=== PATIENT | female | born 1960 ===

== ENCOUNTER 2017-06-26 19:24 | Inpatient (IN) | payer MEDICARE, MEDICAID ==
[2017-06-26 19:24] VITALS: BMI 34.4
--- NOTE | 2017-06-26 19:58 | ED PDOC ---
HPI: Chest Pain Time Seen by Provider: 06/26/17 19:35 Chief Complaint (Nursing): Chest Pain Chief Complaint (Provider): Chest Pain History Per: Patient History/Exam Limitations: no limitations Onset/Duration Of Symptoms: Sudden Onset Current Symptoms Are (Timing): Still Present Quality: "Pain" Exacerbating Factors: Movement, Deep Breathing Additional Complaint(s): Anjelica Vazquez is a 56 y/o female, with a pertinent past medical history of Hypertension, Hypercholestrolemia, Pulmonary Embolism, and Deep Vein Thrombosis , presenting to the ER on 06/26/2017 with complaints of chest pain. Patient reports pain, which is associated with mild dyspnea, was initially localized in her left shoulder but has radiated to her jaw and chest since onset at 16:00 when the patient was relaxing at home. She denies syncope, orthopnea, or leg swelling. Of note, patient states she has discontinued her routine usage of Xarelto due to her rectal bleeding. Patient further states she has an upcoming appointment on 07/03/2017 with her GI. PMD- [facility]- doesnt remember name Past Medical History Reviewed: Historical Data, Nursing Documentation, Vital Signs Vital Signs: Last Vital Signs Temp 98.3 F 06/27/17 12:00 Pulse 60 06/27/17 12:00 Resp 18 06/27/17 12:00 BP 149/88 06/27/17 12:00 Pulse Ox 96 06/27/17 12:00 - Medical History PMH: Anemia, Asthma, Depression, Deep Vein Thrombosis (left leg), HTN, Hypercholesterolemia, Migraine Denies: Diabetes, HIV, Chronic Kidney Disease - Surgical History Surgical History: Cholecystectomy - Family History Family History: States: Unknown Family Hx, [place], Diabetes, Hypertension - Social History Current smoker - smoking cessation education provided: No Alcohol: None Drugs: Denies - Home Medications Home Medications: Ambulatory Orders Medication Instructions Recorded Escitalopram [Lexapro] 20 mg PO DAILY 04/15/16 Esomeprazole Magnesium [Nexium] 40 mg PO ACB 04/15/16 Metoprolol Succinate XL [Toprol XL] 25 mg PO DAILY 04/15/16 Fenofibrate [Triglide] 160 mg PO DAILY 06/26/17 Hydroxychloroquine Sulfate 200 mg PO DAILY 06/26/17 [Plaquenil] Rivaroxaban [Xarelto] 15 mg PO DAILY 06/26/17 - Allergies Allergies/Adverse Reactions: Allergies Allergy/AdvReac Type Severity Reaction Status Date / Time ibuprofen Allergy ITCHING Verified 06/26/17 19:44 Review of Systems ROS Statement: Except As Marked, All Systems Reviewed And Found Negative Cardiovascular: Positive for: Chest Pain. Negative for: Light Headedness Musculoskeletal: Positive for: Neck Pain, Shoulder Pain Physical Exam - Reviewed Nursing Documentation Reviewed: Yes Vital Signs Reviewed: Yes - Physical Exam Appears: Positive for: Non-toxic, No Acute Distress (patient appears to be anxious ) Head Exam: Positive for: ATRAUMATIC, NORMOCEPHALIC Skin: Positive for: Normal Color. Negative for: Rash Eye Exam: Positive for: Normal appearance, EOMI, PERRL ENT: Positive for: Normal ENT Inspection Neck: Positive for: Normal, Painless ROM, Supple Cardiovascular/Chest: Positive for: Regular Rate, Rhythm, Other (patient has reproducible pain to her chest wall ). Negative for: Murmur Respiratory: Positive for: Normal Breath Sounds. Negative for: Respiratory Distress Gastrointestinal/Abdominal: Positive for: Normal Exam, Soft. Negative for: Tenderness Extremity: Positive for: Normal ROM (moderate pain with ROM of left shoulder ). Negative for: Deformity, Swelling Neurologic/Psych: Positive for: Alert, Oriented. Negative for: Motor/Sensory Deficits - Laboratory Results Result Diagrams: 06/27/17 05:35 06/27/17 05:35 - ECG O2 Sat by Pulse Oximetry: 97 Medical Decision Making Medical Decision Makin:35 Initial Impression- 56 y/o female with chest pain Patient's presentation of symptoms puts her at a higher risk for venous thromboembloism, given recent discontinuation of anticoagulation medications. Patient's symptoms are typical of angina as well. She states last stress test was couple years ago. 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 Will order ACS and PE workup as well as trial of NTG for her pain. 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 Dictated and Authenticated by: Nancy Gallegos pt had slight improvement w nitro. Pain atypical but HEART score = 5 (slightly suspicious clinical presentation, nonspecific EKG changes, obese/HTN/high cholesterol). In addition, she is recently off anticoagulation therapy. Documented by Claudia Azar, acting as a scribe for Tr Kothari III, DO All medical record entries made by the Scribe were at my direction and personally dictated by me. I have reviewed the chart and agree that the record accurately reflects my personal performance of the history, physical exam, medical decision making, and the department course for this patient. I have also personally directed, reviewed, and agree with the discharge instructions and disposition. Disposition - Clinical Impression Clinical Impression: Chest pain - Patient ED Disposition Is Patient to be Admitted: Yes Counseled Patient/Family Regarding: Studies Performed, Diagnosis, Need For Followup - Disposition Disposition Time: 22:00 Condition: STABLE - Pt Status Changed To: Hospital Disposition Of: Observation - POA Present On Arrival: None
[2017-06-26 20:07] LABS: BASO % 0.4 % (0.0-2.0); EOS # 0.1 K/uL (0.0-0.7); EOS % 1.3 % (0.0-4.0); HEMATOCRIT 39.3 % (34.0-47.0); LYMPH # 3.5 K/uL (1.0-4.3); LYMPH % 45.7 % (20.0-40.0); MEAN CELL VOLUME 88.8 fl (81.0-99.0); MEAN CORPUSCULAR HEMOGLOBIN 29.1 pg (27.0-31.0); MEAN CORPUSCULAR HGB CONC 32.7 g/dL (33.0-37.0); MEAN PLATELET VOLUME 9.8 fl (7.2-11.7); MONO # 0.7 K/uL (0.0-0.8); MONO % 9.4 % (0.0-10.0); NEUT # 3.3 K/uL (1.8-7.0); NEUT % 43.2 % (50.0-75.0); RED CELL DISTRIBUTION WIDTH 14.5 % (11.5-14.5); WHITE BLOOD COUNT 7.6 K/uL (4.8-10.8)
[2017-06-26 20:12] LABS: ALB/GLOB RATIO 1.3 (1.0-2.1); ALKALINE PHOSPHATASE 99 U/L (38-126); ALT/SGPT 59 U/L (9-52); AST/SGOT 45 U/L (14-36); BILIRUBIN,TOTAL 0.6 mg/dl (0.2-1.3); BLOOD UREA NITROGEN 12 mg/dl (7-17); CALCIUM 9.1 mg/dL (8.4-10.2); CARBON DIOXIDE 25 mmol/L (22-30); CHLORIDE 109 mmol/L (98-107); GFR AFRICAN-AMERICAN 56; GLUCOSE,RANDOM 121 mg/dL (65-105); POTASSIUM 3.7 MMOL/L (3.6-5.0); SODIUM 144 mmol/l (132-148); TOTAL PROTEIN 7.4 G/DL (6.3-8.2)
[2017-06-26] MEDS ORDERED: Sodium Chloride 0.9% 50 ML IV ONE (21:23)
[2017-06-26] MEDS ORDERED: Iodixanol 320 MG/ML 100 ML BOTTLE IV ONE (21:23)
--- NOTE | 2017-06-26 23:09 | CT ---
EXAM: CT Angiography Chest With Intravenous Contrast CLINICAL HISTORY: 56 years old, female; Pain; Chest pain; Left-sided chest pain; Additional info: HX pe, off ac, chest pain. TECHNIQUE: Axial computed tomographic angiography images of the chest with intravenous contrast using pulmonary embolism protocol. This CT exam was performed using one or more of the following dose reduction techniques: automated exposure control, adjustment of the mA and/or kV according to patient size, and/or use of iterative reconstruction technique. MIP reconstructed images were created and reviewed. Coronal and sagittal reformatted images were created and reviewed. CONTRAST: 90 mL of [id number] administered intravenously. EXAM DATE/TIME: 06/26/2017 8:54 PM COMPARISON: CT - ANGIO CHEST PE PROTOCOL 04/14/2016 9:19:37 PM FINDINGS: Heart, aorta and Pulmonary arteries: Heart size is normal.There is trace fluid in pericardial recesses.There are coronary artery calcifications.There is no aneurysm or dissection.There are vascular calcifications. Evaluation of pulmonary arteries is slightly limited by bolus timing. There are no pulmonary emboli. Lungs and pleural spaces: Trachea and main bronchi are patent.There is no pneumothorax. There is no focal consolidation. There is dependent atelectasis. There is a left lower lobe granuloma. There are no effusions. Mediastinum: Esophagus is unremarkable. No pathologically enlarged noncalcified mediastinal or hilar nodes. There are small calcified hilar nodes. Thyroid: Thyroid is only partially imaged. Bones/joints: There are degenerative changes in the osseus structures. Soft tissues: unremarkable Gallbladder and bile ducts: Pelvis in the spleen. Gallbladder is absent. Upper abdomen: There are no acute abnormalities in the visualized portion of the abdomen. IMPRESSION: Slightly limited by bolus timing, no aneurysm, dissection embolus; prior granulomatous disease; no focal pneumonia
[2017-06-27 07:11] LABS: BASO % 0.3 % (0.0-2.0); EOS # 0.1 K/uL (0.0-0.7); EOS % 1.4 % (0.0-4.0); HEMATOCRIT 35.7 % (34.0-47.0); LYMPH # 3.5 K/uL (1.0-4.3); LYMPH % 53.9 % (20.0-40.0); MEAN CELL VOLUME 88.3 fl (81.0-99.0); MEAN CORPUSCULAR HEMOGLOBIN 29.5 pg (27.0-31.0); MEAN CORPUSCULAR HGB CONC 33.4 g/dL (33.0-37.0); MEAN PLATELET VOLUME 10.4 fl (7.2-11.7); MONO # 0.5 K/uL (0.0-0.8); MONO % 8.3 % (0.0-10.0); NEUT # 2.4 K/uL (1.8-7.0); NEUT % 36.1 % (50.0-75.0); NRBC % 0.1 % (0.0-0.0); RED CELL DISTRIBUTION WIDTH 14.4 % (11.5-14.5); WHITE BLOOD COUNT 6.6 K/uL (4.8-10.8)
--- NOTE | 2017-06-27 07:13 | RAD ---
HISTORY: chest pain COMPARISON: Chest x-ray performed 04/14/16 TECHNIQUE: Chest PA and lateral FINDINGS: Examination limited by habitus. LUNGS: No focal consolidation. 5 mm left lower lobe calcified granuloma. Please note that chest x-ray has limited sensitivity for the detection of pulmonary masses. PLEURA: No significant pleural effusion identified. No definite pneumothorax . CARDIOVASCULAR: Heart size appears within normal limits. Ectatic aorta. Atherosclerotic calcifications. OSSEOUS STRUCTURES: Degenerative degenerative changes of the spine and shoulders. VISUALIZED UPPER ABDOMEN: Right upper quadrant surgical clips. OTHER FINDINGS: None. IMPRESSION: No active disease. Findings as above.
[2017-06-27 07:21] LABS: ALB/GLOB RATIO 1.2 (1.0-2.1); ALKALINE PHOSPHATASE 91 U/L (38-126); ALT/SGPT 53 U/L (9-52); AST/SGOT 40 U/L (14-36); BILIRUBIN,TOTAL 0.7 mg/dl (0.2-1.3); BLOOD UREA NITROGEN 14 mg/dl (7-17); CALCIUM 8.6 mg/dL (8.4-10.2); CARBON DIOXIDE 27 mmol/L (22-30); CHLORIDE 106 mmol/L (98-107); GFR AFRICAN-AMERICAN > 60; GLUCOSE,RANDOM 96 mg/dL (65-105); POTASSIUM 3.6 MMOL/L (3.6-5.0); SODIUM 142 mmol/l (132-148); TOTAL PROTEIN 6.7 G/DL (6.3-8.2)
--- NOTE | 2017-06-27 07:25 | CP.PCM.HP ---
History of Present Illness - History of Present Illness History of Present Illness: A 56 year old female came for chest pain. It started yesterday (06/26/17) around 4 PM when she was relaxing at home. This was her first time. The pain is substernal and radiating to left shoulder. The pain was continuous and 9/10. She had mild shortness of breath, and lightheadedness, but there was no nausea, vomiting or headache. She has a history of hypertension, PE and DVT, elevated cholesterol and depression. She had been taking Xarelto for PE till recently and stopped when she had rectal bleeding. She was supposed to have a colonoscopy next week even though her previous one about two years ago was normal. Present on Admission - Present on Admission Any Indicators Present on Admission: No History of DVT/PE: No History of Uncontrolled Diabetes: No Urinary Catheter: No Decubitus Ulcer Present: No Review of Systems - Constitutional Constitutional: absent: Fever, Headache - Cardiovascular Cardiovascular: Chest Pain, Chest Pain at Rest. absent: Diaphoresis, Paroxysmal Nocturnal Dyspnea - Respiratory Respiratory: absent: Cough - Gastrointestinal Gastrointestinal: absent: Nausea, Vomiting Past Patient History - Infectious Disease Hx of Infectious Diseases: None - Tetanus Immunizations Tetanus Immunization: Unknown - Past Medical History & Family History Past Medical History?: Yes - Past Social History Smoking Status: Never Smoked - CARDIAC Hx Cardiac Disorders: Yes Hx Hypercholesterolemia: Yes Hx Hypertension: Yes - PULMONARY Hx Respiratory Disorders: Yes Hx Asthma: Yes - NEUROLOGICAL Hx Neurological Disorder: No - HEENT Hx HEENT Problems: No - RENAL Hx Chronic Kidney Disease: No - ENDOCRINE/METABOLIC Hx Endocrine Disorders: No - HEMATOLOGICAL/ONCOLOGICAL Hx Blood Disorders: Yes Hx Anemia: Yes Other/Comment: LEFT LEG DVT WITH IVC FILTER - INTEGUMENTARY Hx Dermatological Problems: No - MUSCULOSKELETAL/RHEUMATOLOGICAL Hx Musculoskeletal Disorders: Yes Hx Arthritis: Yes Hx Falls: No - GASTROINTESTINAL Hx Gastrointestinal Disorders: No - GENITOURINARY/GYNECOLOGICAL Hx Genitourinary Disorders: No - PSYCHIATRIC Hx Psychophysiologic Disorder: Yes Hx Depression: Yes Hx Substance Use: No - SURGICAL HISTORY Hx Surgeries: Yes Hx Cholecystectomy: Yes Other/Comment: IVC FILTER PLACEMENT - ANESTHESIA Hx Anesthesia: Yes Hx Anesthesia Reactions: No Hx Malignant Hyperthermia: No Meds Allergies/Adverse Reactions: Allergies Allergy/AdvReac Type Severity Reaction Status Date / Time ibuprofen Allergy ITCHING Verified 06/26/17 19:44 Physical Exam - Constitutional Appears: No Acute Distress - Head Exam Head Exam: ATRAUMATIC - Neck Exam Neck exam: Negative for: Meningismus - Respiratory Exam Respiratory Exam: Clear to Auscultation Bilateral, NORMAL BREATHING PATTERN - Cardiovascular Exam Cardiovascular Exam: REGULAR RHYTHM, +S1, +S2. absent: Diastolic murmur, Systolic Murmur - GI/Abdominal Exam GI & Abdominal Exam: Normal Bowel Sounds, Soft. absent: Tenderness - Extremities Exam Extremities exam: Positive for: normal inspection. Negative for: pedal edema Results - Vital Signs Recent Vital Signs: Last Vital Signs Temp 97.9 F 06/27/17 05:13 Pulse 67 06/27/17 05:13 Resp 20 06/27/17 05:13 BP 128/84 06/27/17 05:13 Pulse Ox 94 L 06/27/17 05:13 - Labs Result Diagrams: 06/26/17 19:52 06/26/17 16:22 Assessment & Plan - Assessment and Plan (Free Text) Assessment: A 56 year old female with history of HTN, PE, DVT and depression came for chest pain for one day. R/O ACS Plan: troponin, EKG follow up. cardiology consult morphine iv for pain control - Date & Time Date: 06/27/17 Time: 07:29 Decision To Admit - Pt Status Changed To: Hospital Disposition Of: Inpatient - Admit Certification Admit to Inpatient:: After my assessment, the patient will require hospitalization for at least two midnights. This is because of the severity of symptoms shown, intensity of services needed, and/or the medical risk in this patient being treated as an outpatient. - . Bed Request Type: Telemetry Admitting Physician: Ronnie Magallanes
[2017-06-27] MEDS: Pantoprazole 40 mg EC Tab PO SCH (09:49)
[2017-06-27] MEDS: Metoprolol Succinate 25 mg XL Tab PO SCH ×2 (09:49→17:21)
--- NOTE | 2017-06-27 10:13 | CARD ---
APPROVED REPORT EKG Measurement Heart [id number] DC [id number] <Conclusion> Normal sinus rhythm Minimal voltage criteria for LVH, may be normal variant Borderline ECG
--- NOTE | 2017-06-27 18:59 | CARD ---
APPROVED REPORT EXAM: Two-dimensional and M-mode echocardiogram with Doppler, color Doppler with contrast. Other Information Quality : GoodRhythm : NSR INDICATION ACS Echo Enhancing Agent Indication: Endocardial border delineation Agent/Amount Used: Definity 2D DIMENSIONS IVSd0.97 (0.7-1.1cm)LVDd3.89 (3.9-5.9cm) LVOT Diameter1.72 (1.8-2.4cm)PWd0.92 (0.7-1.1cm) IVSs1.64 (0.8-1.2cm)LVDs2.05 (2.5-4.0cm) FS (%) 47.3 %PWs1.55 (0.8-1.2cm) M-Mode DIMENSIONS Left Atrium (MM)4.53 (2.5-4.0cm)IVSd1.09 (0.7-1.1cm) Aortic Root2.91 (2.2-3.7cm)LVDd5.50 (4.0-5.6cm) Aortic Cusp Exc.2.09 (1.5-2.0cm)PWd0.97 (0.7-1.1cm) IVSs1.56 cmFS (%) 46 % LVDs2.97 (2.0-3.8cm)PWs1.44 cm Mitral Valve MV E Ealfvldq43.5cm/sMV DECEL EVIK885cmAM A Cxryvjih17.4cm/s MV BCS27xgN/A ratio0.8MVA (PHT)2.29cm2 TDI Lateral E' Peak V6.44cm/sMedial E' Peak V5.70cm/sE/Lateral E'6.9 E/Medial E'7.8 Pulmonary Valve PV Peak Unesvwqu35.9cm/s LEFT VENTRICLE The left ventricle is normal size. There is normal left ventricular wall thickness. The left ventricular function is normal. The left ventricular ejection fraction is - 75%. There is normal LV segmental wall motion. Transmitral Doppler flow pattern is Grade I-abnormal relaxation pattern. No left ventricle thrombus noted on this study. There is no ventricular septal defect visualized. There is no left ventricular aneurysm. There is no mass noted in the left ventricle. RIGHT VENTRICLE The right ventricle is normal size. There is normal right ventricular wall thickness. The right ventricular systolic function is normal. ATRIA The left atrium is mildly dilated. There is no thrombus suspected in the left atrium. The right atrium size is normal. The interatrial septum is intact with no evidence for an atrial septal defect. AORTIC VALVE The aortic valve is normal in structure and function. No aortic regurgitation is present. There is no aortic valvular stenosis. MITRAL VALVE The mitral valve is normal in structure and function. There is no evidence of mitral valve prolapse. There is no mitral valve stenosis. Mitral regurgitation is trace. TRICUSPID VALVE The tricuspid valve is normal in structure and function. There is trace tricuspid regurgitation. There is no tricuspid valve prolapse or vegetation. There is no tricuspid valve stenosis. PULMONIC VALVE The pulmonic valve is not well visualized. There is no pulmonic valvular regurgitation. GREAT VESSELS The aortic root is normal in size. The IVC is normal in size and collapses >50% with inspiration. PERICARDIAL EFFUSION The pericardium appears normal. There is no pleural effusion. <Conclusion> The study was of good quality. An echo enhancing agent was used. The left ventricle is normal in size and wall thickness. The left ventricular function is normal. The left ventricular ejection fraction is - 75%. The left atrium is mildly dilated. The mitral, aortic and tricuspid valves are normal. There is trace mitral regurgitation and trace tricuspid regurgitation.
--- NOTE | 2017-06-27 22:08 | CP.PCM.CON ---
History of Present Illness - History of Present Illness History of Present Illness: pt experienced 1 episode of cp yesterday. This occured while sitting and watching tv. Described as left sided chest heaviness radiating to left arm with hand numbness. 8/10 in intensity, lasting 5 min and resolved on own. no prior episodes. positive sob, palp and lightheadedness. no diaphoresis, n/v. no prior episodes. 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 she is unsure if she carries the diagnosis of hypercoag state. Additionally she has an ivcf. denies prior cardiac hx, denies tobacco. She does have a strong fam hx of cad (both mom and dad) and is 16 years post menopausal. additionally she has dyslipidemia and htn. Review of Systems - Constitutional Constitutional: absent: As Per HPI, Anorexia, Chills, Daytime Sleepiness, Excessive Sweating, Fatigue, Fever, Frequent Falls, Headache, Increased Appetite , Lethargy, Malaise, Night Sweats, Snoring, Sleep Apnea, Weight Gain, Weight Loss, Weakness, Other - EENT Eyes: absent: As Per HPI, Blind Spots, Blurred Vision, Change in Vision, Decreased Night Vision, Diplopia, Discharge, Dry Eye, Exophthalmos, Floaters, Irritation, Itchy Eyes, Loss of Peripheral Vision, Pain, Photophobia, Requires Corrective Lenses, Sees Flashes, Spots in Vision, Tunnel Vision, Other Visual Disturbances, Loss of Vision, Other Ears: absent: As Per HPI, Decreased Hearing, Ear Discharge, Ear Pain, Tinnitus, Abnormal Hearing, Disequilibrium, Dizziness, Other Nose/Mouth/Throat: absent: As Per HPI, Epistaxis, Nasal Congestion, Nasal Discharge, Nasal Obstruction, Nasal Trauma, Nose Pain, Post Nasal Drip, Sinus Pain, Sinus Pressure, Bleeding Gums, Change in Voice, Dental Pain, Dry Mouth, Dysphagia, Halitosis, Hoarsness, Lip Swelling, Mouth Lesions, Mouth Pain, Odynophagia, Sore Throat, Throat Swelling, Tongue Swelling, Facial Pain, Neck Pain, Neck Mass, Other - Breasts Breasts: absent: As Per HPI, Change in Shape, Mass, Pain, Nipple Discharge, Nipple Inversion, Skin Changes, Swelling, Other - Cardiovascular Cardiovascular: As Per HPI, Chest Pain, Chest Pain at Rest, Dyspnea, Pain Radiating to Arm/Neck/Jaw, Lightheadedness. absent: Acrocyanosis, Chest Pain with Activity, Claudication, Diaphoresis, Dyspnea on Exertion, Edema, Irregular Heart Rhythm, Leg Edema, Leg Ulcers, Orthopnea, Palpitations, Paroxysmal Nocturnal Dyspnea, Pedal Edema, Radiating Pain, Rapid Heart Rate, Slow Heart Rate, Syncope, Other - Respiratory Respiratory: As Per HPI, Dyspnea. absent: Cough, Hemoptysis, Dyspnea on Exertion, Wheezing, Snoring, Stridor, Pain on Inspiration, Chest Congestion, Excessive Mucous Production, Change in Mucous Color, Pain with Coughing, Other - Gastrointestinal Gastrointestinal: absent: As Per HPI, Abdominal Pain, Belching, Bloating, Change in Bowel Habits, Change in Stool Character, Coffee Ground Emesis, Constipation, Cramping, Diarrhea, Dyspepsia, Dysphagia, Early Satiety, Excessive Flatus, Fecal Incontinence, Heartburn, Hematemesis, Hematochezia, Loose Stools, Melena, Nausea, Odynophagia, Temesmus, Vomiting, Other - Genitourinary Genitourinary: absent: As Per HPI, Change in Urinary Stream, Difficulty Urinating, Dysuria, Flank Pain, Hematuria, Pyuria, Nocturia, Urinary Incontinence, Urinary Frequency, Urinary Hesitance, Urinary Urgency, Voiding Freq/Small Amts, Freq UTI, Hx Renal/Bladder Calculi, Hx /Renal Surgery, Bladder Distension, Other - Reproductive: Female Reproductive:Female: Post Menopausal. absent: As Per HPI, Amenorrhea, Amenorrhea/ Control, Currently Menstual, Cycle <21 Days, Cycle >35 Days, Cycle Variable, Menses 1-7 Days, Menses >/= 8 Days, Menses Variable, Cycle > 4 Weeks Between, No Menses for 6 Months, Heavy Menses, Light Menses, Normal Menses , Spotting Between Cycles, S/P Hysterectomy, Menopausal, Premenarche, Abnormal Vaginal Bleeding, Dysmenorrhea, Dyspareunia, Genital Lesions, Genital Pruritis, Pelvic Pain, Prolapse Symptoms, Sexual Dysfunction, Vaginal Discharge, Vaginal Dryness, Vaginal Odor, Vaginal Pruritis, Other - Menstruation Menstruation: absent: As Per HPI, Amenorrhea, Amenorrhea/ Control, Currently Menstual, Cycle <21 Days, Cycle >35 Days, Cycle Variable, Menses 1-7 Days, Menses >/= 8 Days, Menses Variable, Cycle > 4 Weeks Between, No Menses for 6 Months, Heavy Menses, Light Menses, Normal Menses, Spotting Between Cycles , S/P Hysterectomy, Menopausal, Post Menopausal, Premenarche, Abnormal Vaginal Bleeding, Dysmenorrhea, Other - Musculoskeletal Musculoskeletal: absent: As Per HPI, Abnormal Gait, Arthralgias, Atrophy, Back Pain, Deformity, Joint Swelling, Limited Range of Motion, Loss of Height, Muscle Cramps, Muscle Weakness, Myalgias, Neck Pain, Numbness, Radiating Pain into Limb, Stiffness, Tingling, Other - Integumentary Integumentary: absent: As Per HPI, Acne, Alopecia, Bleeding Lesions, Change in Hair, Change in Nails, Change in Pigmentation, Changing Lesions, Dry Skin, Erythema, Furuncle, Hirsutism, Lesions, New Lesions, Non-Healing Lesions, Photosensitivity, Pruritus, Rash, Skin Pain, Skin Ulcer, Sores, Striae, Swelling , Unusual Bruising, Wounds, Jaundice, Other - Neurological Neurological: absent: As Per HPI, Abnormal Gait, Abnormal Hearing, Abnormal Movements, Abnormal Speech, Behavioral Changes, Burning Sensations, Confusion, Convulsions, Disequilibrium, Dizziness, Numbness, Focal Weakness, Frequent Falls , Headaches, Lack of Coordination, Loss of Vision, Memory Loss, Paresthesias, Radicular Pain, Restless Legs, Sensory Deficit, Syncope, Tingling, Tremor, Vertigo, Weakness, Other Visual Disturbances, Other - Psychiatric Psychiatric: absent: As Per HPI, Abnormal Sleep Pattern, Anhedonia, Anxiety, Auditory Hallucinations, Behavioral Changes, Change in Appetite, Change in Libido, Confusion, Depression, Difficulty Concentrating, Hallucinations, Homicidal Ideation, Hopelessness, Irritability, Memory Loss, Mood Swings, Panic Attacks, Paranoia, Suicidal Ideation, Visual Hallucinations, Tactile Hallucinations, Other - Endocrine Endocrine: absent: As Per HPI, Change in Body Appearance, Change in Libido, Cold Intolorance, Deepening of Voice, Excessive Sweating, Fatigue, Flushing, Heat Intolorance, Increase in Ring/Shoe/Hat Size, Palpitations, Polydipsia, Polyphagia, Polyuria, Other - Hematologic/Lymphatic Hematologic: absent: As Per HPI, Easy Bleeding, Easy Bruising, Lymphadenopathy, Other Past Patient History - Infectious Disease Hx of Infectious Diseases: None - Tetanus Immunizations Tetanus Immunization: Unknown - Past Medical History & Family History Past Medical History?: Yes Pertinent Family History: both parents had premature cad - Past Social History Smoking Status: Never Smoked Chewing Tobacco Use: No Cigar Use: No Alcohol: None Drugs: Denies - CARDIAC Hx Cardiac Disorders: Yes Hx Hypercholesterolemia: Yes Hx Hypertension: Yes - PULMONARY Hx Respiratory Disorders: Yes Hx Asthma: Yes Other/Comment: dvt and pe - NEUROLOGICAL Hx Neurological Disorder: Yes Hx Migraine: Yes - HEENT Hx HEENT Problems: No - RENAL Hx Chronic Kidney Disease: No - ENDOCRINE/METABOLIC Hx Endocrine Disorders: No - HEMATOLOGICAL/ONCOLOGICAL Hx Blood Disorders: Yes Hx Anemia: Yes Hx Human Immunodeficiency Virus (HIV): No Other/Comment: unknown if hypercoag - INTEGUMENTARY Hx Dermatological Problems: No - MUSCULOSKELETAL/RHEUMATOLOGICAL Hx Musculoskeletal Disorders: Yes Hx Arthritis: Yes Hx Falls: No - GASTROINTESTINAL Hx Gastrointestinal Disorders: No - GENITOURINARY/GYNECOLOGICAL Hx Genitourinary Disorders: No - PSYCHIATRIC Hx Depression: Yes - SURGICAL HISTORY Hx Cholecystectomy: Yes - ANESTHESIA Hx Anesthesia: Yes Hx Anesthesia Reactions: No Hx Malignant Hyperthermia: No Meds Allergies/Adverse Reactions: Allergies Allergy/AdvReac Type Severity Reaction Status Date / Time ibuprofen Allergy ITCHING Verified 06/26/17 19:44 - Medications Medications: Current Medications Acetaminophen (Tylenol 325mg Tab) 650 mg PO Q6 PRN PRN Reason: Pain, moderate (4-7) Aspirin (Aspirin Chewable) 81 mg PO DAILY [facility] Last Admin: 06/27/17 09:48 Dose: 81 mg Enoxaparin Sodium (Lovenox) 80 mg SC Q12 [facility] PRN Reason: Protocol Escitalopram Oxalate (Lexapro) 20 mg PO DAILY [facility] Last Admin: 06/27/17 09:48 Dose: 20 mg Hydroxychloroquine Sulfate (Plaquenil) 200 mg PO DAILY [facility] Last Admin: 06/27/17 09:49 Dose: 200 mg Metoprolol Succinate (Toprol Xl) 25 mg PO BID [facility] Last Admin: 06/27/17 17:21 Dose: 25 mg Morphine Sulfate (Morphine) 2 mg IVP Q6 PRN PRN Reason: Pain, severe (8-10) Last Admin: 06/27/17 20:47 Dose: 2 mg Pantoprazole Sodium (Protonix Ec Tab) 40 mg PO ACB [facility] Last Admin: 06/27/17 09:49 Dose: 40 mg Physical Exam - Constitutional Appears: Well - Head Exam Head Exam: ATRAUMATIC, NORMAL INSPECTION, NORMOCEPHALIC - Eye Exam Eye Exam: EOMI, Normal appearance, PERRL. absent: Conjunctival injection, Nystagmus, Periorbital swelling, Periorbital tenderness, Scleral icterus Pupil Exam: NORMAL ACCOMODATION, PERRL. absent: Fixed, Irregular, Miosis, Mydriatic, Unequal - ENT Exam ENT Exam: Mucous Membranes Moist, Normal Exam. absent: Mucous Membranes Dry, Normal External Ear Exam, Normal Oropharynx, TM's Normal Bilaterally - Neck Exam Neck exam: Positive for: Normal Inspection - Respiratory Exam Respiratory Exam: Rales, NORMAL BREATHING PATTERN. absent: Accessory Muscle Use , Chest Wall Tenderness, Decreased Breath Sounds, Clear to Auscultation Bilateral, Prolonged Expiratory Phase, Rhonchi, Wheezes, Respiratory Distress, Stridor Additional comments: mild bibasilar - Cardiovascular Exam Cardiovascular Exam: REGULAR RHYTHM, +S1, +S2, Systolic Murmur. absent: Bradycardia, Tachycardia, Clicks, Diastolic murmur, Gallop, Irregular Rhythm, JVD, RRR, Rubs, +S4 - GI/Abdominal Exam GI & Abdominal Exam: Normal Bowel Sounds, Soft - Rectal Exam Rectal Exam: Deferred - Extremities Exam Extremities exam: Positive for: normal inspection. Negative for: calf tenderness, full ROM, joint swelling, normal capillary refill, pedal edema, tenderness, pedal pulses present - Back Exam Back exam: NORMAL INSPECTION. absent: CVA tenderness (L), CVA tenderness (R), FULL ROM, muscle spasm, paraspinal tenderness, rash noted, tenderness, vertebral tenderness - Psychiatric Exam Psychiatric exam: Normal Affect, Normal Mood - Skin Skin Exam: Dry, Intact, Normal Color, Warm Results - Vital Signs Recent Vital Signs: Last Vital Signs Temp 98.5 F 06/27/17 20:08 Pulse 66 06/27/17 20:08 Resp 16 06/27/17 20:08 BP 143/85 06/27/17 20:08 Pulse Ox 97 06/27/17 20:08 - Labs Result Diagrams: 06/27/17 05:35 06/27/17 05:35 Labs: Laboratory Results - last 24 hr 06/27/17 20:06 Troponin I < 0.0120 - EKG Data EKG Interpreted by: Myself EKG shows normal: Sinus rhythm Rate: Normal - EKG Data EKG comments: no ischemic changes. borderline lvh Assessment & Plan (1) Chest pain Status: Acute Priority: High (2) HTN (hypertension) Status: Chronic (3) HLD (hyperlipidemia) Status: Chronic (4) DVT (deep venous thrombosis) Status: Chronic (5) Pulmonary embolism Status: Chronic - Assessment and Plan (Free Text) Plan: pt has typical angina and multiple risk factors. 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 changed ACEI to ramipril 90 min total care time
[2017-06-27] MEDS: Enoxaparin 100 mg Syringe SC SCH (22:13)
[2017-06-28] MEDS: Enoxaparin 100 mg Syringe SC SCH ×2 (08:02→20:14)
[2017-06-28] MEDS: Pantoprazole 40 mg EC Tab PO SCH (08:03)
[2017-06-28] MEDS: Metoprolol Succinate 25 mg XL Tab PO SCH ×2 (08:03→16:25)
--- NOTE | 2017-06-28 08:13 | CP.PCM.PN ---
Subjective - Date & Time of Evaluation Date of Evaluation: 06/28/17 Time of Evaluation: 08:11 - Subjective Subjective: less chest pain Objective - Vital Signs/Intake and Output Vital Signs (last 24 hours): Temp Pulse Resp BP Pulse Ox 98.3 F 60 18 158/86 H 95 06/28/17 08:00 06/28/17 08:03 06/28/17 08:00 06/28/17 08:03 06/28/17 08:00 - Medications Medications: Current Medications Acetaminophen (Tylenol 325mg Tab) 650 mg PO Q6 PRN PRN Reason: Pain, moderate (4-7) Aspirin (Aspirin Chewable) 81 mg PO DAILY [facility] Last Admin: 06/28/17 08:02 Dose: 81 mg Enoxaparin Sodium (Lovenox) 90 mg SC Q12 [facility] PRN Reason: Protocol Last Admin: 06/28/17 08:02 Dose: 90 mg Escitalopram Oxalate (Lexapro) 20 mg PO DAILY [facility] Last Admin: 06/28/17 08:02 Dose: 20 mg Hydroxychloroquine Sulfate (Plaquenil) 200 mg PO DAILY [facility] Last Admin: 06/28/17 08:03 Dose: 200 mg Metoprolol Succinate (Toprol Xl) 25 mg PO BID [facility] Last Admin: 06/28/17 08:03 Dose: 25 mg Morphine Sulfate (Morphine) 2 mg IVP Q6 PRN PRN Reason: Pain, severe (8-10) Last Admin: 06/28/17 07:59 Dose: 2 mg Pantoprazole Sodium (Protonix Ec Tab) 40 mg PO ACB [facility] Last Admin: 06/28/17 08:03 Dose: 40 mg - Labs Labs: PT 11.8 Seconds (9.8-13.1) 06/26/17 19:52 INR 1.0 (0.9-1.2) 06/26/17 19:52 APTT 28.0 Seconds (25.6-37.1) 06/26/17 19:52 - Constitutional Appears: No Acute Distress - Respiratory Exam Respiratory Exam: NORMAL BREATHING PATTERN - Cardiovascular Exam Cardiovascular Exam: REGULAR RHYTHM. absent: Murmur - Extremities Exam Extremities Exam: absent: Pedal Edema Assessment and Plan - Assessment and Plan (Free Text) Assessment: chest pain with history of DVT, PE Three troponins and 2D echo were normal. Plan: as per cardiology stress test on Friday check lipid
--- NOTE | 2017-06-28 12:25 | CP.PCM.PN ---
Subjective - Date & Time of Evaluation Date of Evaluation: 06/28/17 Time of Evaluation: 15:21 - Subjective Subjective: HAD NECK PAIN TODAY. STATES DIFF THEN PRIOR SYMPTOMS. THIS APPEARS MSK Objective - Vital Signs/Intake and Output Vital Signs (last 24 hours): Temp Pulse Resp BP Pulse Ox 98.2 F 65 18 142/90 98 06/28/17 12:12 06/28/17 12:12 06/28/17 12:12 06/28/17 12:12 06/28/17 12:12 - Medications Medications: Current Medications Acetaminophen (Tylenol 325mg Tab) 650 mg PO Q6 PRN PRN Reason: Pain, moderate (4-7) Aspirin (Aspirin Chewable) 81 mg PO DAILY [facility] Last Admin: 06/28/17 08:02 Dose: 81 mg Enoxaparin Sodium (Lovenox) 90 mg SC Q12 [facility] PRN Reason: Protocol Last Admin: 06/28/17 08:02 Dose: 90 mg Escitalopram Oxalate (Lexapro) 20 mg PO DAILY [facility] Last Admin: 06/28/17 08:02 Dose: 20 mg Hydroxychloroquine Sulfate (Plaquenil) 200 mg PO DAILY [facility] Last Admin: 06/28/17 08:03 Dose: 200 mg Metoprolol Succinate (Toprol Xl) 25 mg PO BID [facility] Last Admin: 06/28/17 08:03 Dose: 25 mg Morphine Sulfate (Morphine) 2 mg IVP Q6 PRN PRN Reason: Pain, severe (8-10) Last Admin: 06/28/17 07:59 Dose: 2 mg Pantoprazole Sodium (Protonix Ec Tab) 40 mg PO ACB [facility] Last Admin: 06/28/17 08:03 Dose: 40 mg - Labs Labs: PT 11.8 Seconds (9.8-13.1) 06/26/17 19:52 INR 1.0 (0.9-1.2) 06/26/17 19:52 APTT 28.0 Seconds (25.6-37.1) 06/26/17 19:52 - Constitutional Appears: Well - Head Exam Head Exam: ATRAUMATIC, NORMAL INSPECTION, NORMOCEPHALIC - Eye Exam Eye Exam: EOMI, Normal appearance, PERRL. absent: Conjunctival injection, Nystagmus, Periorbital swelling, Periorbital tenderness, Scleral icterus Pupil Exam: NORMAL ACCOMODATION, PERRL - ENT Exam ENT Exam: Mucous Membranes Moist, Normal Exam. absent: Mucous Membranes Dry, Normal External Ear Exam, Normal Oropharynx, TM's Normal Bilaterally - Neck Exam Neck Exam: Full ROM, Tenderness. absent: Lymphadenopathy, Meningismus, Normal Inspection, Thyromegaly Additional comments: tENDERNESS OVER THE LEFT TRAP AND NECK. - Respiratory Exam Respiratory Exam: Clear to Ausculation Bilateral, NORMAL BREATHING PATTERN. absent: Accessory Muscle Use, Chest Wall Tenderness, Decreased Breath Sounds, Prolonged Expiratory Phase, Rales, Rhonchi, Wheezes, Respiratory Distress, Stridor - Cardiovascular Exam Cardiovascular Exam: REGULAR RHYTHM, +S1, +S2. absent: Bradycardia, Tachycardia , Clicks, Diastolic murmur, Gallop, Irregular Rhythm, JVD, RRR, Rubs, +S4, Murmur - GI/Abdominal Exam GI & Abdominal Exam: Soft, Normal Bowel Sounds - Rectal Exam Rectal Exam: Deferred. absent: Black Stool, Bloody Stool, Hemorrhoids, Fecal Impaction, NORMAL INSPECTION - Extremities Exam Extremities Exam: Full ROM, Normal Capillary Refill, Normal Inspection. absent : Calf Tenderness, Joint Swelling, Pedal Edema, Tenderness - Back Exam Back Exam: NORMAL INSPECTION. absent: CVA tenderness (L), CVA tenderness (R), Full ROM, muscle spasm, paraspinal tenderness, rash noted, tenderness, vertebral tenderness - Neurological Exam Neurological Exam: Alert, Awake, CN II-XII Intact, Normal Gait, Oriented x3. absent: Abnormal Gait, Altered, Motor Sensory Deficit, Reflexes Normal - Psychiatric Exam Psychiatric exam: Normal Affect, Normal Mood. absent: Agitated, Anxious, Depressed, Flat Affect, Homicidal Ideation, Manic, Suicidal Ideation - Skin Skin Exam: Dry, Intact, Normal Color, Warm. absent: Abrasion, Cyanosis, Diaphoretic, Erythema, Mottled, Pallor, Pallor, Petechiae, Rash, Urticaria, Vesicles Assessment and Plan (1) Chest pain Status: Acute (2) HTN (hypertension) Status: Chronic (3) HLD (hyperlipidemia) Status: Chronic (4) DVT (deep venous thrombosis) Status: Chronic (5) Pulmonary embolism Status: Chronic - Assessment and Plan (Free Text) Plan: bp and hr stable may ambulate awaiting st 45 min total care prelim echo normal ef no sig abn
[2017-06-29] MEDS: Pantoprazole 40 mg EC Tab PO SCH (08:10)
[2017-06-29] MEDS: Enoxaparin 100 mg Syringe SC SCH ×2 (08:11→20:05)
[2017-06-29] MEDS: Metoprolol Succinate 25 mg XL Tab PO SCH ×2 (08:13→17:13)
--- NOTE | 2017-06-29 16:55 | CP.PCM.PN ---
Subjective - Date & Time of Evaluation Date of Evaluation: 06/29/17 Time of Evaluation: 16:53 - Subjective Subjective: pain on left supra-clavicular area 8/10, constant no nausea no diaphoresis no substernal chest pain Objective - Vital Signs/Intake and Output Vital Signs (last 24 hours): Temp Pulse Resp BP Pulse Ox 98.8 F 66 16 134/89 95 06/29/17 16:25 06/29/17 16:25 06/29/17 16:25 06/29/17 16:25 06/29/17 16:25 - Medications Medications: Current Medications Acetaminophen (Tylenol 325mg Tab) 650 mg PO Q6 PRN PRN Reason: Pain, moderate (4-7) Aspirin (Aspirin Chewable) 81 mg PO DAILY [facility] Last Admin: 06/29/17 08:10 Dose: 81 mg Enoxaparin Sodium (Lovenox) 90 mg SC Q12 [facility] PRN Reason: Protocol Last Admin: 06/29/17 08:11 Dose: 90 mg Escitalopram Oxalate (Lexapro) 20 mg PO DAILY [facility] Last Admin: 06/29/17 08:10 Dose: 20 mg Hydroxychloroquine Sulfate (Plaquenil) 200 mg PO DAILY [facility] Last Admin: 06/29/17 08:10 Dose: 200 mg Metoprolol Succinate (Toprol Xl) 25 mg PO BID [facility] Last Admin: 06/29/17 08:13 Dose: 25 mg Morphine Sulfate (Morphine) 2 mg IVP Q6 PRN PRN Reason: Pain, severe (8-10) Last Admin: 06/29/17 14:29 Dose: 2 mg Pantoprazole Sodium (Protonix Ec Tab) 40 mg PO ACB [facility] Last Admin: 06/29/17 08:10 Dose: 40 mg - Labs Labs: PT 11.8 Seconds (9.8-13.1) 06/26/17 19:52 INR 1.0 (0.9-1.2) 06/26/17 19:52 APTT 28.0 Seconds (25.6-37.1) 06/26/17 19:52 - Constitutional Appears: Non-toxic, No Acute Distress - Neck Exam Neck Exam: Normal Inspection - Respiratory Exam Respiratory Exam: Chest Wall Tenderness (mild), Clear to Ausculation Bilateral ( obese) - Cardiovascular Exam Cardiovascular Exam: REGULAR RHYTHM. absent: Murmur Assessment and Plan - Assessment and Plan (Free Text) Assessment: 56 y/o female history of PE, DVT, filter placement came for chest pain negative troponin Plan: pain control stress test pending tomorrow cardiology follow up. check sed rate, lipid
--- NOTE | 2017-06-29 22:44 | CP.PCM.PN ---
Subjective - Date & Time of Evaluation Date of Evaluation: 06/29/17 Time of Evaluation: 16:00 - Subjective Subjective: NO CP OR SOB Objective - Vital Signs/Intake and Output Vital Signs (last 24 hours): Temp Pulse Resp BP Pulse Ox 99.1 F 68 16 116/64 95 06/29/17 20:03 06/29/17 20:03 06/29/17 20:03 06/29/17 20:03 06/29/17 20:03 Intake and Output: 06/29/17 06/30/17 18:59 06:59 Intake Total 200 400 Balance 200 400 - Medications Medications: Current Medications Acetaminophen (Tylenol 325mg Tab) 650 mg PO Q6 PRN PRN Reason: Pain, moderate (4-7) Aspirin (Aspirin Chewable) 81 mg PO DAILY [facility] Last Admin: 06/29/17 08:10 Dose: 81 mg Enoxaparin Sodium (Lovenox) 90 mg SC Q12 [facility] PRN Reason: Protocol Last Admin: 06/29/17 20:05 Dose: 90 mg Escitalopram Oxalate (Lexapro) 20 mg PO DAILY [facility] Last Admin: 06/29/17 08:10 Dose: 20 mg Hydroxychloroquine Sulfate (Plaquenil) 200 mg PO DAILY [facility] Last Admin: 06/29/17 08:10 Dose: 200 mg Metoprolol Succinate (Toprol Xl) 25 mg PO BID [facility] Last Admin: 06/29/17 17:13 Dose: 25 mg Morphine Sulfate (Morphine) 2 mg IVP Q6 PRN PRN Reason: Pain, severe (8-10) Last Admin: 06/29/17 20:06 Dose: 2 mg Pantoprazole Sodium (Protonix Ec Tab) 40 mg PO ACB [facility] Last Admin: 06/29/17 08:10 Dose: 40 mg - Labs Labs: PT 11.8 Seconds (9.8-13.1) 06/26/17 19:52 INR 1.0 (0.9-1.2) 06/26/17 19:52 APTT 28.0 Seconds (25.6-37.1) 06/26/17 19:52 Assessment and Plan (1) Chest pain Status: Acute (2) HTN (hypertension) Status: Chronic (3) HLD (hyperlipidemia) Status: Chronic (4) DVT (deep venous thrombosis) Status: Chronic (5) Pulmonary embolism Status: Chronic
[2017-06-30 06:17] LABS: CHOLESTEROL 169 mg/dL (0-199)
--- NOTE | 2017-06-30 07:40 | CP.PCM.PN ---
Subjective - Date & Time of Evaluation Date of Evaluation: 06/30/17 Time of Evaluation: 07:38 - Subjective Subjective: still left side neck pain she received a morphine injection last night slept well Objective - Vital Signs/Intake and Output Vital Signs (last 24 hours): Temp Pulse Resp BP Pulse Ox 98.5 F 64 20 132/84 94 L 06/29/17 23:43 06/29/17 23:43 06/29/17 23:43 06/29/17 23:43 06/29/17 23:43 Intake and Output: 06/30/17 06/30/17 06:59 18:59 Intake Total 840 Balance 840 - Medications Medications: Current Medications Acetaminophen (Tylenol 325mg Tab) 650 mg PO Q6 PRN PRN Reason: Pain, moderate (4-7) Aspirin (Aspirin Chewable) 81 mg PO DAILY [facility] Last Admin: 06/29/17 08:10 Dose: 81 mg Enoxaparin Sodium (Lovenox) 90 mg SC Q12 [facility] PRN Reason: Protocol Last Admin: 06/29/17 20:05 Dose: 90 mg Escitalopram Oxalate (Lexapro) 20 mg PO DAILY [facility] Last Admin: 06/29/17 08:10 Dose: 20 mg Hydroxychloroquine Sulfate (Plaquenil) 200 mg PO DAILY [facility] Last Admin: 06/29/17 08:10 Dose: 200 mg Metoprolol Succinate (Toprol Xl) 25 mg PO BID [facility] Last Admin: 06/29/17 17:13 Dose: 25 mg Pantoprazole Sodium (Protonix Ec Tab) 40 mg PO ACB [facility] Last Admin: 06/29/17 08:10 Dose: 40 mg - Labs Labs: PT 11.8 Seconds (9.8-13.1) 06/26/17 19:52 INR 1.0 (0.9-1.2) 06/26/17 19:52 APTT 28.0 Seconds (25.6-37.1) 06/26/17 19:52 - Constitutional Appears: No Acute Distress (sitting on a chair at bed side) - Respiratory Exam Respiratory Exam: Clear to Ausculation Bilateral - Cardiovascular Exam Cardiovascular Exam: REGULAR RHYTHM. absent: Murmur - GI/Abdominal Exam GI & Abdominal Exam: Soft (obese) Assessment and Plan - Assessment and Plan (Free Text) Assessment: 56 y/o female with history of PE, DVT, HTN came with chest pain. CT was ruled out. most likely musculo-skeletal doris Plan: today stress test as per cardiology
[2017-06-30] MEDS: Enoxaparin 100 mg Syringe SC SCH ×2 (09:12→21:49)
[2017-06-30] MEDS: Pantoprazole 40 mg EC Tab PO SCH ×2 (09:12→16:36)
[2017-06-30] MEDS: Metoprolol Succinate 25 mg XL Tab PO SCH (09:13)
--- NOTE | 2017-06-30 13:06 | PQF GENQUE ---
Dr. Magallanes, Typical Angina ruled in or ruled out ?:after the work up is completed OR: Unable to determine OR: Other explanation of clinical finding Cardiology consult:(1) Chest pain Status: Acute Priority: High (2) HTN (hypertension) Status: Chronic (3) HLD (hyperlipidemia) Status: Chronic (4) DVT (deep venous thrombosis) Status: Chronic (5) Pulmonary embolism Status: Chronic Assessment: pt has Typical Angina and multiple risk factors. 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 changed ACEI to ramipril 06/28: Cardiology note: had neck pain today; states different then prior synptoms ; this appears MSK 06/30 Attending progress note: still left side neck pain she received a morphine injection last night slept well ND was ruled out. most likely musculo-skeletal pain Stress test pending This form is a permanent part of the medical record Clarification of your documentation is requested to better reflect the severity of illness and intensity of treatment of your patient. Indicators present [] Specify: [] [] Specify: [] [] Specify: [] [] Specify: [] Location in the medical record that reflects the above clinical findings: [] Treatment Provided: [] PHYSICIAN'S RESPONSE Based on your medical judgment of the clinical indicators outlined above please clarify the following: [] Practitioner response [ ] Typical Angina ruled in [ x ] Typical Angina ruled out [] If unable to determine, please check the box, sign and date. Present On Admission (POA) Indicator: [x] Present at the time of admission [] Not present at the time of admission [] Clinically Undetermined In responding to this query, please exercise your independent professional judgment. The fact that a question is asked does not imply that any particular answer is desired or expected. Thank you for your clarification on this documentation. If you have any questions please call. * Thank you, Vera Sanders RN BSN ext. #[phone] MTDD
--- NOTE | 2017-07-01 00:41 | CP.PCM.PN ---
Subjective - Date & Time of Evaluation Date of Evaluation: 06/30/17 Time of Evaluation: 16:00 - Subjective Subjective: NO FURTHER CP. POSITIVE NECK PAIN. ST PERFORMED. RESULTS PENDING Objective - Vital Signs/Intake and Output Vital Signs (last 24 hours): Temp Pulse Resp BP Pulse Ox 98.7 F 70 20 123/83 94 L 06/30/17 20:01 06/30/17 21:00 06/30/17 20:01 06/30/17 20:01 06/30/17 20:01 Intake and Output: 06/30/17 07/01/17 18:59 06:59 Intake Total 1700 Balance 1700 - Medications Medications: Current Medications Acetaminophen (Tylenol 325mg Tab) 650 mg PO Q6 PRN PRN Reason: Pain, moderate (4-7) Aspirin (Aspirin Chewable) 81 mg PO DAILY [facility] Last Admin: 06/30/17 16:35 Dose: 81 mg Enoxaparin Sodium (Lovenox) 90 mg SC Q12 [place] PRN Reason: Protocol Last Admin: 06/30/17 21:49 Dose: 90 mg Escitalopram Oxalate (Lexapro) 20 mg PO DAILY [facility] Last Admin: 06/30/17 16:35 Dose: 20 mg Hydroxychloroquine Sulfate (Plaquenil) 200 mg PO DAILY [facility] Last Admin: 06/30/17 16:36 Dose: 200 mg Metoprolol Tartrate (Lopressor) 25 mg PO BID [facility] Last Admin: 06/30/17 16:35 Dose: 25 mg Morphine Sulfate (Morphine) 2 mg IVP Q6 PRN PRN Reason: Pain, severe (8-10) Stop: 07/02/17 07:43 Last Admin: 06/30/17 20:19 Dose: 2 mg Pantoprazole Sodium (Protonix Ec Tab) 40 mg PO ACB [facility] Last Admin: 06/30/17 16:36 Dose: 40 mg - Labs Labs: PT 11.8 Seconds (9.8-13.1) 06/26/17 19:52 INR 1.0 (0.9-1.2) 06/26/17 19:52 APTT 28.0 Seconds (25.6-37.1) 06/26/17 19:52 Assessment and Plan (1) Chest pain Status: Acute (2) HTN (hypertension) Status: Chronic (3) HLD (hyperlipidemia) Status: Chronic (4) DVT (deep venous thrombosis) Status: Chronic (5) Pulmonary embolism Status: Chronic
[2017-07-01 00:51] VITALS: RESP 18
--- NOTE | 2017-07-01 07:58 | CP.PCM.PN ---
Subjective - Date & Time of Evaluation Date of Evaluation: 07/01/17 Time of Evaluation: 07:56 - Subjective Subjective: less chest pain this morning Objective - Vital Signs/Intake and Output Vital Signs (last 24 hours): Temp Pulse Resp BP Pulse Ox 98.2 F 71 18 110/74 96 07/01/17 05:17 07/01/17 05:17 07/01/17 05:17 07/01/17 05:17 07/01/17 05:17 - Medications Medications: Current Medications Acetaminophen (Tylenol 325mg Tab) 650 mg PO Q6 PRN PRN Reason: Pain, moderate (4-7) Aspirin (Aspirin Chewable) 81 mg PO DAILY [facility] Last Admin: 06/30/17 16:35 Dose: 81 mg Enoxaparin Sodium (Lovenox) 90 mg SC Q12 [facility] PRN Reason: Protocol Last Admin: 06/30/17 21:49 Dose: 90 mg Escitalopram Oxalate (Lexapro) 20 mg PO DAILY [facility] Last Admin: 06/30/17 16:35 Dose: 20 mg Hydroxychloroquine Sulfate (Plaquenil) 200 mg PO DAILY [facility] Last Admin: 06/30/17 16:36 Dose: 200 mg Metoprolol Tartrate (Lopressor) 25 mg PO BID [facility] Last Admin: 06/30/17 16:35 Dose: 25 mg Morphine Sulfate (Morphine) 2 mg IVP Q6 PRN PRN Reason: Pain, severe (8-10) Stop: 07/02/17 07:43 Last Admin: 06/30/17 20:19 Dose: 2 mg Pantoprazole Sodium (Protonix Ec Tab) 40 mg PO ACB [facility] Last Admin: 06/30/17 16:36 Dose: 40 mg - Labs Labs: PT 11.8 Seconds (9.8-13.1) 06/26/17 19:52 INR 1.0 (0.9-1.2) 06/26/17 19:52 APTT 28.0 Seconds (25.6-37.1) 06/26/17 19:52 - Constitutional Appears: No Acute Distress - Respiratory Exam Respiratory Exam: Clear to Ausculation Bilateral - Cardiovascular Exam Cardiovascular Exam: REGULAR RHYTHM. absent: Murmur - GI/Abdominal Exam GI & Abdominal Exam: Soft (obese) Assessment and Plan - Assessment and Plan (Free Text) Assessment: A 56 year old female with history of HTN, RA, PE who came for chest pain ACS was ruled out yesterday myocardial perfusion scan was done. official result is pending Plan: if stress test is negative and cardiology cleared, can D/C home today with an out patient follow up. continue other medicines.
[2017-07-01 08:17] VITALS: BP 112/73; PULSE 69; TEMP 98.1; O2SAT 97
[2017-07-01] MEDS: Pantoprazole 40 mg EC Tab PO SCH (08:40)
[2017-07-01] MEDS: Enoxaparin 100 mg Syringe SC SCH (08:41)
--- NOTE | 2017-07-01 19:25 | CARD ---
APPROVED REPORT Protocol: LEXISCAN Test Type: LEXISCAN Medications: ACETAMINOPHEN 650MG ASPIRIN 81MG LOVENOX 90MG LEXAPRO 20MG PLAQUENIL 200MG METOPROLOL TARTRATE 25MG MORPHINE 2MG IV PROTONIX EC TAB 40MG TOPROL 25MG Medical History: HTN, CHOLESTEROL, DEPRESSION, ASTHMA, ANEMIA, CHOECYSTECTOMY Target HR: 165 bpm Resting ECG: normal Resting Heart Rate: 70 bpm Resting Blood Pressure: 134/84mmHg submaximum (85%): 140 bpm TEST SUMMARY [id number]. [id number]. INJECTIONNS FLUSH00:[id number]/[id number]. INJECTIONNUC MED00:[id number]/[id number]. [id number]/[id number]. PROCEDURE Pharmacologic stress testing was performed using 0.4mg per 5ml of regadenoson given intravenously over 7-10 seconds. POST EXERCISE Reason for Termination: COMPLETED THE STUDY Target HR: No Max HR: 89 bpm 54% of Maximum Predicted HR: 165 bpm Exercise duration: 01:00 min:sec, 0 Stage Exercise capacity: 1.0METs Max Blood Pressure: 192/81mmHg Blood Pressure response to exercise: PHARMACOLOGICAL Heart Rate response to exercise: PHARMACOLOGICAL Chest Pain: No, none Angina index: 0 Arrhythmia: No, none ST Change: No, none Deviation: 0 mm Clinical Indications Under Appropriate Use Criteria chest pain Stress EKG Interpretation NORMAL PHARMACOLOGICAL STRESS TEST. EXAM: Myocardial Perfusion REST/STRESS Image QualityGood Imaging Protocol The imaging protocol used to acquire images was Rest Tc-99m/stress Tc-99m 1 day Rest Spect myocardial perfusion imaging was performed in supine position 120 minutes following the injection of 10 mCi of Tc-99 Myoview. Time of rest injection: 9;40 Time of rest imagin:30 At peak stress, the patient was injected intravenously with 25mCi of Tc-99 tetrofosmin after an infusion time of minutes and seconds. Time of stress injection: 14:00 Time of stress imagin:04 Gated Stress Spect was performed 64 minutes after intravenous Tc-99 Myoview injection. The images were gated to evaluate regional wall motion and calculate ventricular ejection fraction. NUCLEAR IMAGE INTERPRETATION The rest and stress images show normal perfusion, normal contraction and thickening. LV Perfusion The perfusion of the left ventricle was normal on the standard three tomographic images and the bullseye plot images. Wall Motion normal LVEF of 82% CONCLUSION 1. The patient is a 56 year old female referred for a pharmacological stress test due to chest pain. She also has a history of hypertension, hyperlipidemia, deep vein thrombosis with a pulmonary embolus and depression. Her medicines include metoprolol, aspirin, lovenox and lexapro. Her resting EKG shows normal sinus rhythm. The patient was hooked-up to a continuous sales professional bilingual and lexiscan at a dose of 0.4 mg/5ml was injected intravenously. She tolerated the lexiscan well without any chest pain or significant EKG changes. The vital signs were stable and there weren't any side effects from the lexiscan. The nuclear scans showed normal perfusion of the left ventricle. The LVEF on the gated study was 82%. 2. Impression: Negative pharmacological stress test for ischemia. LVEF of 82%. Recommendation medical treatment The results of this test discussed with Dr. Kendal Bishop.
--- NOTE | 2017-07-17 13:56 | CP.PCM.DIS ---
Provider - Provider Date of Admission: 06/27/17 14:41 Attending physician: Ronnie Magallanes MD Primary care physician: A 56 year old female came for chest pain. It started yesterday (06/26/17) around 4 PM when she was relaxing at home. This was her first time. The pain is substernal and radiating to left shoulder. The pain was continuous and 9/10. She had mild shortness of breath, and lightheadedness, but there was no nausea, vomiting or headache. She has a history of hypertension, PE and DVT, elevated cholesterol and depression. She had been taking Xarelto for PE till recently and stopped when she had rectal bleeding. She was supposed to have a colonoscopy next week even though her previous one about two years ago was normal. Time Spent in preparation of Discharge (in minutes): 30 Hospital Course - Lab Results Lab Results: Most Recent Lab Values WBC 6.6 K/uL (4.8-10.8) 06/27/17 05:35 RBC 4.04 Mil/uL (3.80-5.20) 06/27/17 05:35 Hgb 11.9 g/dL (12.0-16.0) L 06/27/17 05:35 Hct 35.7 % (34.0-47.0) 06/27/17 05:35 MCV 88.3 fl (81.0-99.0) 06/27/17 05:35 MCH 29.5 pg (27.0-31.0) 06/27/17 05:35 MCHC 33.4 g/dL (33.0-37.0) 06/27/17 05:35 RDW 14.4 % (11.5-14.5) 06/27/17 05:35 Plt Count 176 K/uL (130-400) 06/27/17 05:35 MPV 10.4 fl (7.2-11.7) 06/27/17 05:35 Neut % (Auto) 36.1 % (50.0-75.0) L 06/27/17 05:35 Lymph % (Auto) 53.9 % (20.0-40.0) H 06/27/17 05:35 [place] % (Auto) 8.3 % (0.0-10.0) 06/27/17 05:35 Eos % (Auto) 1.4 % (0.0-4.0) 06/27/17 05:35 Baso % (Auto) 0.3 % (0.0-2.0) 06/27/17 05:35 Neut # 2.4 K/uL (1.8-7.0) 06/27/17 05:35 Lymph # 3.5 K/uL (1.0-4.3) 06/27/17 05:35 Kemper # 0.5 K/uL (0.0-0.8) 06/27/17 05:35 Eos # 0.1 K/uL (0.0-0.7) 06/27/17 05:35 Baso # 0.0 K/uL (0.0-0.2) 06/27/17 05:35 ESR 46 mm/hr (0-30) H 06/30/17 05:35 PT 11.8 Seconds (9.8-13.1) 06/26/17 19:52 INR 1.0 (0.9-1.2) 06/26/17 19:52 APTT 28.0 Seconds (25.6-37.1) 06/26/17 19:52 D-Dimer, Quantitative 119 ng/mlDDU (0-230) 06/26/17 19:52 Sodium 142 mmol/l (132-148) 06/27/17 05:35 Potassium 3.6 MMOL/L (3.6-5.0) 06/27/17 05:35 Chloride 106 mmol/L (98-107) 06/27/17 05:35 Carbon Dioxide 27 mmol/L (22-30) 06/27/17 05:35 Anion Gap 12 (10-20) 06/27/17 05:35 BUN 14 mg/dl (7-17) 06/27/17 05:35 Creatinine 1.1 mg/dL (0.7-1.2) 06/27/17 05:35 Est GFR ( Amer) > 60 06/27/17 05:35 Est GFR (Non-Af Amer) 52 06/27/17 05:35 Random Glucose 96 mg/dL (65-105) 06/27/17 05:35 Calcium 8.6 mg/dL (8.4-10.2) 06/27/17 05:35 Total Bilirubin 0.7 mg/dl (0.2-1.3) 06/27/17 05:35 AST 40 U/L (14-36) H 06/27/17 05:35 ALT 53 U/L (9-52) H 06/27/17 05:35 Alkaline Phosphatase 91 U/L (38-126) 06/27/17 05:35 Troponin I < 0.0120 ng/mL (0.00-0.120) 06/27/17 20:06 Total Protein 6.7 G/DL (6.3-8.2) 06/27/17 05:35 Albumin 3.7 g/dL (3.5-5.0) 06/27/17 05:35 Globulin 3.1 gm/dL (2.2-3.9) 06/27/17 05:35 Albumin/Globulin Ratio 1.2 (1.0-2.1) 06/27/17 05:35 Triglycerides 178 mg/DL (0-149) H 06/30/17 05:35 Cholesterol 169 mg/dL (0-199) 06/30/17 05:35 LDL Cholesterol Direct 111 mg/dL (0-129) 06/30/17 05:35 HDL Cholesterol 31 MG/DL (30-70) 06/30/17 05:35 - Hospital Course Hospital Course: no complications stable cardiology work up - Date & Time of H&P Date of H&P: 07/17/17 Time of H&P: 13:56 Discharge Exam - Head Exam Head Exam: ATRAUMATIC, NORMAL INSPECTION, NORMOCEPHALIC Discharge Plan - Follow Up Plan Condition: STABLE Disposition: HOME/ ROUTINE Instructions: Chest Pain (DC) Additional Instructions: patient cleared for discharge to Home today by and Stress test reviewed by - results negative Rx for meds provided pt. will f/u with in 1 week f/u with cardiology in1 week Referrals: Ronnie Magallanes MD [Staff Provider] - Lory Bishop MD [Staff Provider] -
== END 2017-07-01 12:11 | disposition home or self-care (01) | DRG 313 ==
LOC: H.ER 19:24 → H.ERHOLD 23:34 → H.TEL 06-27 00:47 → OBSVTOIN 06-27 14:41
PROVIDERS: ADMIT Internal Medicine; ATTEND Internal Medicine
DX: R07.89 Other chest pain (principal); I25.10 Atherosclerotic heart disease of native coronary artery without angina pectoris; I27.82 Chronic pulmonary embolism; I10 Essential (primary) hypertension; E78.5 Hyperlipidemia, unspecified; E78.00 Pure hypercholesterolemia, unspecified; D64.9 Anemia, unspecified; F32.9 Major depressive disorder, single episode, unspecified; J45.909 Unspecified asthma, uncomplicated; Z86.718 Personal history of other venous thrombosis and embolism; Z79.01 Long term (current) use of anticoagulants; Z88.6 Allergy status to analgesic agent

== ENCOUNTER 2017-07-03 08:01 | Day surgery (SDC) | payer MEDICAID ==
[2017-07-03] MEDS ORDERED: Lactated Ringer's 500 ML IV ONE (08:47)
[2017-07-03 09:00] VITALS: BMI 37.8
[2017-07-03 09:26] VITALS: TEMP 97
[2017-07-03] MEDS ORDERED: Propofol 10 mg/ml Inj (20 ML) ONE (10:09)
[2017-07-03 11:30] VITALS: BP 108/65; PULSE 80; RESP 22; O2SAT 99
== END 2017-07-03 11:40 | disposition home or self-care (01) ==
LOC: H.ENDO 08:01
PROVIDERS: ATTEND Internal Medicine Gastroenterology
DX: Z12.11 Encounter for screening for malignant neoplasm of colon (principal); J45.909 Unspecified asthma, uncomplicated; E78.5 Hyperlipidemia, unspecified; I10 Essential (primary) hypertension; M19.90 Unspecified osteoarthritis, unspecified site; K62.1 Rectal polyp; K57.30 Diverticulosis of large intestine without perforation or abscess without bleeding; Q43.8 Other specified congenital malformations of intestine

== ENCOUNTER 2017-07-21 16:13 | Emergency (ER) | payer MEDICARE, MEDICAID ==
[2017-07-21 16:13] VITALS: BMI 37.8
[2017-07-21 16:28] VITALS: BP 116/86; PULSE 71; RESP 18; TEMP 98.9; O2SAT 99
--- NOTE | 2017-07-21 16:42 | ED PDOC ---
Upper Extremity Pain/Injury Time Seen by Provider: 07/21/17 16:31 Chief Complaint (Nursing): Upper Extremity Problem/Injury Chief Complaint (Provider): Left Arm Pain History Per: Patient History/Exam Limitations: no limitations Onset/Duration Of Symptoms: Hrs Current Symptoms Are (Timing): Still Present Quality: "Pain" Additional Complaint(s): Anjelica Vazquez is a 56 year old right hand dominant female who presents to the ED complaining of left shoulder pain radiating to her neck which started today. The patient states that she has had similar symptoms in the past but it has never been this severe. She did not take any medication for pain. She denies any shortness of breath or chest pain, no fall or injury. Patient states she can't lift her arm above her head due to severe pain. PMD: Dr. Lemos Past Medical History Reviewed: Historical Data, Nursing Documentation, Vital Signs Vital Signs: Last Vital Signs Temp 98.9 F 07/21/17 16:26 Pulse 71 07/21/17 16:26 Resp 18 07/21/17 16:26 BP 116/86 07/21/17 16:26 Pulse Ox 99 07/21/17 16:26 - Medical History PMH: Anemia, Arthritis, Asthma, Depression, Deep Vein Thrombosis (left leg), HTN , Hypercholesterolemia, Migraine, Rheumatoid Arthritis Denies: HIV - Surgical History Surgical History: Cholecystectomy - Family History Family History: States: [place], Diabetes, Hypertension - Living Arrangements Living Arrangements: With Family - Social History Current smoker - smoking cessation education provided: No Alcohol: None Drugs: Denies - Home Medications Home Medications: Ambulatory Orders Medication Instructions Recorded Escitalopram [Lexapro] 20 mg PO DAILY 04/15/16 Esomeprazole Magnesium [Nexium] 40 mg PO ACB 04/15/16 Metoprolol Succinate XL [Toprol XL] 25 mg PO DAILY 04/15/16 Fenofibrate [Triglide] 160 mg PO DAILY 06/26/17 Hydroxychloroquine Sulfate 200 mg PO DAILY 06/26/17 [Plaquenil] Rivaroxaban [Xarelto] 15 mg PO DAILY 07/03/17 Lidocaine 5% [Lidoderm] 1 ea TD DAILY #30 patch 07/21/17 Metaxalone [Skelaxin] 800 mg PO TID PRN #20 tablet 07/21/17 traMADol [Ultram] 50 mg PO TID PRN #15 tab 07/21/17 - Allergies Allergies/Adverse Reactions: Allergies Allergy/AdvReac Type Severity Reaction Status Date / Time ibuprofen Allergy ITCHING Verified 07/03/17 08:57 Review of Systems ROS Statement: Except As Marked, All Systems Reviewed And Found Negative Constitutional: Negative for: Fever, Chills, Weakness Cardiovascular: Negative for: Chest Pain Respiratory: Negative for: Shortness of Breath, SOB with Exertion Gastrointestinal: Negative for: Nausea, Vomiting Musculoskeletal: Positive for: Neck Pain (left-sided neck pain), Arm Pain (left arm pain) Physical Exam - Reviewed Nursing Documentation Reviewed: Yes Vital Signs Reviewed: Yes - Physical Exam Appears: Positive for: Well, Non-toxic, Uncomfortable Head Exam: Positive for: ATRAUMATIC, NORMAL INSPECTION, NORMOCEPHALIC Skin: Positive for: Normal Color, Warm, Dry. Negative for: Rash Eye Exam: Positive for: Normal appearance Neck: Negative for: Normal (Tenderness to left lateral neck.), Painless ROM Cardiovascular/Chest: Positive for: Regular Rate, Rhythm Respiratory: Positive for: Normal Breath Sounds. 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 Sling applied to left arm. Will d/c with rx tramadol, skelaxin and lidoderm patch. Patient was referred to ortho occupational health nurse manager for follow up. ____ Scribe Attestation Documented by [place] Mckinney acting as a scribe for Shaina Be PA-C. Scribe Attestation All medical record entries made by the Scribe were at my direction and personally dictated by me. I have reviewed the chart and agree that the record accurately reflects my personal performance of the history, physical exam, medical decision making, and the department course for this patient. I have also personally directed, reviewed, and agree with the discharge instructions and disposition. Procedures - Splinting Location: left arm Pre-Made Type: sling Pre-Proc Neuro Vasc Exam: normal Post-Proc Neuro Vasc Exam: normal Disposition - Clinical Impression Clinical Impression: Shoulder pain, Calcific tendinitis of left shoulder - Patient ED Disposition Is Patient to be Admitted: No Counseled Patient/Family Regarding: Studies Performed, Diagnosis, Need For Followup, Rx Given - Disposition Referrals: Arvin Morales III, MD [Staff Provider] - Shaik Hills MD [Family Provider] - [facility] [Outside] Disposition: Routine/Home Disposition Time: 18:19 Condition: STABLE Additional Instructions: Ice and rest affected area. Take rx meds as directed as needed for pain. Follow up in 1-2 days with primary care doctor or with orthopedist. Prescriptions: Lidocaine 5% [Lidoderm] 1 ea TD DAILY #30 patch Metaxalone [Skelaxin] 800 mg PO TID PRN #20 tablet PRN Reason: Muscle Pain traMADol [Ultram] 50 mg PO TID PRN #15 tab PRN Reason: Pain, Moderate (4-7) Instructions: Calcific Tendinitis (ED), Shoulder Pain (ED) Forms: [employer] ([place])
--- NOTE | 2017-07-22 08:25 | RAD ---
PROCEDURE: Radiographs of the Left Shoulder HISTORY: Pain COMPARISON: No prior. FINDINGS: BONES: There is no acute displaced fracture or bone destruction. Bone alignment is normal. There is mild diffuse bone demineralization. JOINTS: Glenohumeral and acromioclavicular joints preserved. No osteoarthritis. SOFT TISSUES: Normal. OTHER FINDINGS: None. IMPRESSION: No acute fracture, dislocation or bone destruction. No radiographic evidence for calcific tendinitis.
--- NOTE | 2017-07-22 11:26 | CARD ---
APPROVED REPORT EKG Measurement Heart [id number] <Conclusion> Normal sinus rhythm Normal ECG
== END 2017-07-21 18:55 | disposition home or self-care (01) ==
LOC: H.ER 16:13
DX: M75.32 Calcific tendinitis of left shoulder (principal)

== ENCOUNTER 2017-09-30 19:03 | Emergency (ER) | payer MEDICARE, MEDICAID ==
[2017-09-30 19:03] VITALS: BMI 37.8
[2017-09-30 19:25] VITALS: BP 151/96; PULSE 80; RESP 18; TEMP 99.7; O2SAT 95
--- NOTE | 2017-09-30 19:47 | ED PDOC ---
Upper Extremity Pain/Injury Time Seen by Provider: 09/30/17 19:35 Chief Complaint (Nursing): Upper Extremity Problem/Injury Chief Complaint (Provider): Upper extremity problem History Per: Patient History/Exam Limitations: no limitations Onset/Duration Of Symptoms: Days (x1 months) Current Symptoms Are (Timing): Still Present Pain Scale Rating Of: 10 Additional Complaint(s): Anjelica Vazquez is a 56 year old female, with a past medical history of HTN and rheumatoid arthritis, who presents to the emergency department complaining of left shoulder pain radiating down her arm onset 1 month ago. Patient reports she was seen by a doctor and had X-rays done. She was prescribed Percocet for the pain but denies taking any today. Patient denies any trauma or fall. No further medical complaints. PMD: None provided. Past Medical History Reviewed: Historical Data, Nursing Documentation, Vital Signs Vital Signs: Last Vital Signs Temp 99.7 F H 09/30/17 19:21 Pulse 80 09/30/17 19:21 Resp 18 09/30/17 19:21 BP 151/96 H 09/30/17 19:21 Pulse Ox 95 09/30/17 19:21 - Medical History PMH: Anemia, Arthritis, Asthma, Depression, Deep Vein Thrombosis (left leg), HTN , Hypercholesterolemia, Migraine, Rheumatoid Arthritis Denies: Diabetes, HIV, Chronic Kidney Disease - Surgical History Surgical History: Cholecystectomy - Family History Family History: States: Unknown Family Hx, [place], Diabetes, Hypertension - Social History Current smoker - smoking cessation education provided: No Alcohol: None Drugs: Denies - Home Medications Home Medications: Ambulatory Orders Medication Instructions Recorded Escitalopram [Lexapro] 20 mg PO DAILY 04/15/16 Esomeprazole Magnesium [Nexium] 40 mg PO ACB 04/15/16 Metoprolol Succinate XL [Toprol XL] 25 mg PO DAILY 04/15/16 Fenofibrate [Triglide] 160 mg PO DAILY 06/26/17 Hydroxychloroquine Sulfate 200 mg PO DAILY 06/26/17 [Plaquenil] Rivaroxaban [Xarelto] 15 mg PO DAILY 07/03/17 Lidocaine 5% [Lidoderm] 1 ea TD DAILY #30 patch 07/21/17 Metaxalone [Skelaxin] 800 mg PO TID PRN #20 tablet 07/21/17 traMADol [Ultram] 50 mg PO TID PRN #15 tab 07/21/17 Tramadol HCl [Ultram] 50 mg PO Q8 PRN #8 tablet 09/30/17 - Allergies Allergies/Adverse Reactions: Allergies Allergy/AdvReac Type Severity Reaction Status Date / Time ibuprofen Allergy ITCHING Verified 07/03/17 08:57 Review of Systems Constitutional: Negative for: Other (trauma or fall) Musculoskeletal: Positive for: Shoulder Pain (left shoulder pain radiating down the entire arm), Arm Pain (left) Skin: Negative for: Rash Physical Exam - Reviewed Nursing Documentation Reviewed: Yes Vital Signs Reviewed: Yes - Physical Exam Appears: Positive for: Non-toxic Head Exam: Positive for: ATRAUMATIC, NORMAL INSPECTION, NORMOCEPHALIC Skin: Positive for: Normal Color, Warm, Dry Eye Exam: Positive for: Normal appearance Neck: Positive for: Normal, Painless ROM, Supple Respiratory: Negative for: Respiratory Distress Back: Negative for: Other (No paracervical tenderness) Extremity: Positive for: Tenderness (along the clavicle and left upper arm & bicep. Left subscapular tenderness) Neurologic/Psych: Positive for: Alert, Oriented - ECG O2 Sat by Pulse Oximetry: 95 (RA) Pulse Ox Interpretation: Normal Medical Decision Making Medical Decision Making: Initial Impression: Left arm pain Initial Plan: --Ultram 50 mg PO --reevaluation old medical records reviewed. 07/22/17 Shoulder X-Ray FINDINGS: BONES: There is no acute displaced fracture or bone destruction. Bone alignment is normal. There is mild diffuse bone demineralization. JOINTS: Glenohumeral and acromioclavicular joints preserved. No osteoarthritis. SOFT TISSUES: Normal. OTHER FINDINGS: None. IMPRESSION: No acute fracture, dislocation or bone destruction. No radiographic evidence for calcific tendinitis. Scribe Attestation: Documented by Macho Good, acting as a scribe for Joselo GUILLERMO. Provider Scribe Attestation: All medical record entries made by the Scribe were at my direction and personally dictated by me. I have reviewed the chart and agree that the record accurately reflects my personal performance of the history, physical exam, medical decision making, and the department course for this patient. I have also personally directed, reviewed, and agree with the discharge instructions and disposition. Disposition - Clinical Impression Clinical Impression: Biceps tendonitis - Patient ED Disposition Is Patient to be Admitted: No - Disposition Disposition: Routine/Home Disposition Time: 19:47 Condition: FAIR Prescriptions: Tramadol HCl [Ultram] 50 mg PO Q8 PRN #8 tablet PRN Reason: Pain, Severe (8-10) Instructions: Tendinitis (ED) Forms: [employer] (Syriac)
== END 2017-09-30 20:03 | disposition home or self-care (01) ==
LOC: H.ER 19:03
DX: M75.22 Bicipital tendinitis, left shoulder (principal); E78.00 Pure hypercholesterolemia, unspecified; F32.9 Major depressive disorder, single episode, unspecified; I10 Essential (primary) hypertension; J45.909 Unspecified asthma, uncomplicated; M06.9 Rheumatoid arthritis, unspecified; Z79.01 Long term (current) use of anticoagulants; Z86.718 Personal history of other venous thrombosis and embolism

== ENCOUNTER 2017-10-27 13:47 | Emergency (ER) | payer MEDICARE, MEDICAID ==
[2017-10-27 13:48] VITALS: BMI 37.8
[2017-10-27 14:37] VITALS: BP 135/70; PULSE 92; RESP 18; TEMP 98; O2SAT 98
[2017-10-27] MEDS ORDERED: Lidocaine 5% Patch TD STA (16:01)
[2017-10-27] MEDS ORDERED: Lidocaine 5% Patch TD ONE (16:12)
--- NOTE | 2017-10-27 16:27 | ED PDOC ---
HPI: General Adult Time Seen by Provider: 10/27/17 15:26 Chief Complaint (Nursing): Upper Extremity Problem/Injury Chief Complaint (Provider): Upper Extremity Problem/Injury History Per: Patient History/Exam Limitations: no limitations Onset/Duration Of Symptoms: Days (x 2) Current Symptoms Are (Timing): Still Present Additional Complaint(s): Anjelica is a 57 year old female, with past medical history of high cholesterol , hypertension and diabetes, who presents to the Emergency Department complaining dysuria for 2 days. Patient reports having pain and burnning sensation when urinating. Patient states she has difficult urinating because of pain. Denies stomach pain, back pain, vaginal discharge, fever and chills PMD: Shaik Reinier Past Medical History Reviewed: Historical Data, Nursing Documentation, Vital Signs Vital Signs: Last Vital Signs Temp 98 F 10/27/17 14:34 Pulse 92 H 10/27/17 14:34 Resp 18 10/27/17 14:34 BP 135/70 10/27/17 14:34 Pulse Ox 98 10/27/17 16:34 - Medical History PMH: Anemia, Arthritis, Asthma, Depression, Deep Vein Thrombosis (left leg), HTN , Hypercholesterolemia, Migraine, Rheumatoid Arthritis Denies: Diabetes, HIV, Chronic Kidney Disease - Surgical History Surgical History: Cholecystectomy - Family History Family History: States: [place], Diabetes, Hypertension - Home Medications Home Medications: Ambulatory Orders Medication Instructions Recorded Escitalopram [Lexapro] 20 mg PO DAILY 04/15/16 Esomeprazole Magnesium [Nexium] 40 mg PO ACB 04/15/16 Metoprolol Succinate XL [Toprol XL] 25 mg PO DAILY 04/15/16 Fenofibrate [Triglide] 160 mg PO DAILY 06/26/17 Hydroxychloroquine Sulfate 200 mg PO DAILY 06/26/17 [Plaquenil] Rivaroxaban [Xarelto] 15 mg PO DAILY 07/03/17 Lidocaine 5% [Lidoderm] 1 ea TD DAILY #30 patch 07/21/17 Metaxalone [Skelaxin] 800 mg PO TID PRN #20 tablet 07/21/17 traMADol [Ultram] 50 mg PO TID PRN #15 tab 07/21/17 Tramadol HCl [Ultram] 50 mg PO Q8 PRN #8 tablet 09/30/17 Clotrimazole/Betamethasone 1 appl EXT BID #1 tube 10/27/17 [Lotrisone] Nitrofurantoin Macrocrystals 1 cap PO BID #14 cap 10/27/17 [Macrobid] traMADol [Ultram] 50 mg PO TID #10 tab 10/27/17 - Allergies Allergies/Adverse Reactions: Allergies Allergy/AdvReac Type Severity Reaction Status Date / Time ibuprofen Allergy ITCHING Verified 10/27/17 14:33 Review of Systems ROS Statement: Except As Marked, All Systems Reviewed And Found Negative (and as per HPI) Constitutional: Negative for: Fever, Chills Genitourinary Female: Positive for: Dysuria, Frequency. Negative for: Incontinence, Hematuria, Vaginal Discharge, Vaginal Bleeding, Pelvic Pain Musculoskeletal: Positive for: Shoulder Pain (Left ongoing x 1 month) Skin: Positive for: Rash (right lower leg x 3 (Doctor gave cream, but states gets worse when applied)) Physical Exam - Reviewed Nursing Documentation Reviewed: Yes Vital Signs Reviewed: Yes - Physical Exam Appears: Positive for: Non-toxic, No Acute Distress Head Exam: Positive for: ATRAUMATIC, NORMOCEPHALIC Skin: Positive for: Warm, Dry, Rash (irregularly shaped well demarcated nonblanching erythemaous lesion RIGHT lateral lower leg dry and scaly with a few satellite lesions) Neck: Positive for: Painless ROM, Supple (no midline ttp) Gastrointestinal/Abdominal: Positive for: Soft. Negative for: Tenderness Back: Negative for: L CVA Tenderness, R CVA Tenderness Extremity: Positive for: Other (LEFT shoulder: No deformity no swelling no deltoid anesthesia, FROM passively but illicits pain in almost all directions, limited active ROM due to pain) Lymphatic: Negative for: Axilla Node Tenderness Neurologic/Psych: Positive for: Alert. Negative for: Motor/Sensory Deficits - ECG O2 Sat by Pulse Oximetry: 98 (RA) Pulse Ox Interpretation: Normal Medical Decision Making Medical Decision Making: Time: 15:44 Impressions: Dysuria, Shoulder Pain, Tinea Corporis - Glucose, Blood, POC STAT - Left Shoulder X-Ray Time: 16:01 - Lidoderm 5% - Tylenol 325mg tab - Ultram 50 mg PO STAT RIGHT shoulder: No fx/dislocation Reviewed previous charts. Pt with several visits for same shoulder. Given Ultram. [place] Rx database and pt has had several narcotic pain medication prescriptions in last 6 months from different providers. Advised about dangers of narcotic medications including dependence, addition and overdose and that tramadol will be given today but no further at future visits. Udip c/w UTI. Antibiotics prescribed. Scribe Attestation: Documented by Mitchell Currie, acting as a scribe for Shaina Medrano MD Provider Scribe Attestation: All medical record entries made by the Scribe were at my direction and personally dictated by me. I have reviewed the chart and agree that the record accurately reflects my personal performance of the history, physical exam, medical decision making, and the department course for this patient. I have also personally directed, reviewed, and agree with the discharge instructions and disposition. Disposition - Clinical Impression Clinical Impression: Shoulder pain, Tinea corporis, UTI (urinary tract infection) Counseled Patient/Family Regarding: Studies Performed, Diagnosis, Need For Followup, Rx Given - Disposition Referrals: Shaik Hills MD [Medical Doctor] - 10/29/17 Disposition: Routine/Home Disposition Time: 18:00 Condition: IMPROVED Prescriptions: Clotrimazole/Betamethasone [Lotrisone] 1 appl EXT BID #1 tube Nitrofurantoin Macrocrystals [Macrobid] 1 cap PO BID #14 cap traMADol [Ultram] 50 mg PO TID #10 tab Instructions: Urinary Tract Infection in Women (ED), Tinea Corporis (ED), Narcotic Pain Management (ED), Shoulder Pain (ED) Forms: [employer] (Syriac)
--- NOTE | 2017-10-28 10:03 | RAD ---
PROCEDURE: Radiographs of the Left Shoulder HISTORY: LEFT shoulder pain COMPARISON: No prior. FINDINGS: BONES: No acute fracture or destructive bony lesion identified. JOINTS: Relatively advanced degenerative changes seen the acromioclavicular and glenohumeral joints without fracture subluxation or dislocation appreciated this time. SOFT TISSUES: Normal. OTHER FINDINGS: None. IMPRESSION: Degenerative joint disease seen prominently at the acromioclavicular and glenohumeral joints. No acute fracture or dislocation identified left shoulder.
== END 2017-10-27 18:34 | disposition home or self-care (01) ==
LOC: H.ER 13:47
DX: N39.0 Urinary tract infection, site not specified (principal); B35.4 Tinea corporis; M25.512 Pain in left shoulder; E11.9 Type 2 diabetes mellitus without complications; E78.00 Pure hypercholesterolemia, unspecified; F32.9 Major depressive disorder, single episode, unspecified; I10 Essential (primary) hypertension; J45.909 Unspecified asthma, uncomplicated; M06.9 Rheumatoid arthritis, unspecified; M19.012 Primary osteoarthritis, left shoulder; Z86.718 Personal history of other venous thrombosis and embolism

== ENCOUNTER 2018-01-06 16:07 | Emergency (ER) | payer MEDICARE, MEDICAID ==
[2018-01-06 16:07] VITALS: BMI 37.8
[2018-01-06 16:14] VITALS: PULSE 80; RESP 16; TEMP 97.4; O2SAT 99
[2018-01-06] MEDS ORDERED: Lidocaine 5% Patch TD STA (16:35)
[2018-01-06] MEDS ORDERED: Lidocaine 5% Patch TD ONE (16:45)
[2018-01-06 16:50] VITALS: BP 151/80
--- NOTE | 2018-01-06 16:51 | ED PDOC ---
Upper Extremity Pain/Injury Time Seen by Provider: 01/06/18 16:22 Chief Complaint (Nursing): Upper Extremity Problem/Injury Chief Complaint (Provider): Left shoulder pain History Per: Patient History/Exam Limitations: no limitations Onset/Duration Of Symptoms: Intermittent Episodes Current Symptoms Are (Timing): Still Present Additional Complaint(s): 57 year old female presents to the emergency department complaining of left shoulder pain, onset yesterday. She denies any injury or fall. Taking Tylenol without relief. Pain is described as sharp, severe, and radiates down the left arm and up to her neck. Denies any associated numbness. Patient reports a history of rheumatoid arthritis, and has had a similar pain intermittently in the past. One month ago she received a steroid injection to the shoulder with good relief of pain. 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 Mead Past Medical History Reviewed: Historical Data, Nursing Documentation, Vital Signs Vital Signs: Last Vital Signs Temp 97.4 F L 01/06/18 16:12 Pulse 80 01/06/18 16:12 Resp 16 01/06/18 16:12 BP 173/98 H 01/06/18 16:12 Pulse Ox 99 01/06/18 16:12 - Medical History PMH: Anemia, Arthritis, Asthma, Depression, Deep Vein Thrombosis (left leg), HTN , Hypercholesterolemia, Migraine, Rheumatoid Arthritis Denies: Diabetes, HIV, Chronic Kidney Disease - Surgical History Surgical History: Cholecystectomy - Family History Family History: States: Unknown Family Hx, [place], Diabetes, Hypertension - Home Medications Home Medications: Ambulatory Orders Medication Instructions Recorded Escitalopram [Lexapro] 20 mg PO DAILY 04/15/16 Esomeprazole Magnesium [Nexium] 40 mg PO ACB 04/15/16 Metoprolol Succinate XL [Toprol XL] 25 mg PO DAILY 04/15/16 Fenofibrate [Triglide] 160 mg PO DAILY 06/26/17 Hydroxychloroquine Sulfate 200 mg PO DAILY 06/26/17 [Plaquenil] Rivaroxaban [Xarelto] 15 mg PO DAILY 07/03/17 Lidocaine 5% [Lidoderm] 1 ea TD DAILY #30 patch 07/21/17 Metaxalone [Skelaxin] 800 mg PO TID PRN #20 tablet 07/21/17 traMADol [Ultram] 50 mg PO TID PRN #15 tab 07/21/17 Tramadol HCl [Ultram] 50 mg PO Q8 PRN #8 tablet 09/30/17 Clotrimazole/Betamethasone 1 appl EXT BID #1 tube 10/27/17 [Lotrisone] Nitrofurantoin Macrocrystals 1 cap PO BID #14 cap 10/27/17 [Macrobid] traMADol [Ultram] 50 mg PO TID #10 tab 10/27/17 Lidocaine [Topicaine] 1 appl TP Q12 PRN #1 tub 01/06/18 - Allergies Allergies/Adverse Reactions: Allergies Allergy/AdvReac Type Severity Reaction Status Date / Time ibuprofen Allergy ITCHING Verified 01/06/18 16:12 Review of Systems ROS Statement: Except As Marked, All Systems Reviewed And Found Negative (as per HPI otherwise negative) Musculoskeletal: Positive for: Shoulder Pain (Left) Neurological: Negative for: Weakness, Numbness Physical Exam - Reviewed Nursing Documentation Reviewed: Yes Vital Signs Reviewed: Yes - ECG O2 Sat by Pulse Oximetry: 99 (RA) Pulse Ox Interpretation: Normal Medical Decision Making Medical Decision Making: Initial Impression: Acute on Chronic Left Shoulder Pain Time: 16:33 Initial Plan: * Lidocaine * Tramadol 50 mg * Tylenol 975 mg * Solu-medrol 125 mg Discussed pain management options with patient. In the past patient had been prescribed tramadol, however there is concern for multiple visits for same issue requiring narcotic pain medication. Will control pain in the ER but discharge with lidocaine and advise patient to follow up outpatient as scheduled. No narcotic prescriptions to be given at this visit. Scribe Attestation: Documented by Nettie De Leon, acting as a scribe for Shaina Medrano MD Provider Scribe Attestation: All medical record entries made by the Scribe were at my direction and personally dictated by me. I have reviewed the chart and agree that the record accurately reflects my personal performance of the history, physical exam, medical decision making, and the department course for this patient. I have also personally directed, reviewed, and agree with the discharge instructions and disposition. Disposition - Clinical Impression Clinical Impression: Rheumatoid arthritis, Shoulder pain - Patient ED Disposition Is Patient to be Admitted: No Counseled Patient/Family Regarding: Diagnosis, Need For Followup - Disposition Referrals: Tono Mead MD [Medical Doctor] - (FOLLOW UP WITH DR MEAD SOON POSSIBLE) Disposition: Routine/Home Disposition Time: 16:51 Additional Instructions: FOLLOW UP SOON POSSIBLE WITH DR MEAD USE SLING UNTIL YOUR FOLLOW UP APPOINTMENT Prescriptions: Lidocaine [Topicaine] 1 appl TP Q12 PRN #1 tub PRN Reason: shoulder pain Instructions: Chronic Pain (ED), Rheumatoid Arthritis (ED), Shoulder Pain (ED) Forms: [employer] (Nicaraguan) - POA Present On Arrival: None
== END 2018-01-06 17:30 | disposition home or self-care (01) ==
LOC: H.ER 16:07
DX: M25.512 Pain in left shoulder (principal); M06.9 Rheumatoid arthritis, unspecified
CPT/HCPCS: 96372; 99283; J2930

== ENCOUNTER 2018-03-22 20:06 | Emergency (ER) | payer MEDICARE, MEDICAID ==
[2018-03-22 20:06] VITALS: BMI 37.8
[2018-03-22 20:19] VITALS: TEMP 98.4
[2018-03-22 20:37] VITALS: BP 154/62; PULSE 84; RESP 16; O2SAT 100
--- NOTE | 2018-03-22 22:31 | ED PDOC ---
Upper Extremity Pain/Injury Time Seen by Provider: 03/22/18 20:40 Chief Complaint (Nursing): Upper Extremity Problem/Injury Chief Complaint (Provider): Left shoulder pain x 6 months History Per: Patient History/Exam Limitations: no limitations Onset/Duration Of Symptoms: Days Current Symptoms Are (Timing): Still Present Quality: "Pain" Additional Complaint(s): 57 yo female with chronic shoulder pain presents with shoulder pain. PT states that she saw orthopedic a few weeks ago and had an injection. PT reports feeling well for a few weeks but the pain is now worse today. Pt states that she has appointment with Dr. Mack next week. No new fall/trauma. Past Medical History Reviewed: Historical Data, Nursing Documentation, Vital Signs Vital Signs: Last Vital Signs Temp 98.4 F 03/22/18 20:17 Pulse 84 03/22/18 20:36 Resp 16 03/22/18 20:36 BP 154/62 H 03/22/18 20:36 Pulse Ox 100 03/22/18 20:36 - Medical History PMH: Anemia, Arthritis, Asthma, Depression, Deep Vein Thrombosis (left leg), HTN , Hypercholesterolemia, Migraine, Rheumatoid Arthritis Denies: Diabetes, HIV, Chronic Kidney Disease - Surgical History Surgical History: Cholecystectomy - Family History Family History: States: Unknown Family Hx, [place], Diabetes, Hypertension - Living Arrangements Living Arrangements: With Family - Social History Current smoker - smoking cessation education provided: No Alcohol: None Drugs: Denies - Home Medications Home Medications: Ambulatory Orders Medication Instructions Recorded Escitalopram [Lexapro] 20 mg PO DAILY 04/15/16 Esomeprazole Magnesium [Nexium] 40 mg PO ACB 04/15/16 Metoprolol Succinate XL [Toprol XL] 25 mg PO DAILY 04/15/16 Fenofibrate [Triglide] 160 mg PO DAILY 06/26/17 Hydroxychloroquine Sulfate 200 mg PO DAILY 06/26/17 [Plaquenil] Rivaroxaban [Xarelto] 15 mg PO DAILY 07/03/17 Lidocaine 5% [Lidoderm] 1 ea TD DAILY #30 patch 07/21/17 Metaxalone [Skelaxin] 800 mg PO TID PRN #20 tablet 07/21/17 traMADol [Ultram] 50 mg PO TID PRN #15 tab 07/21/17 Tramadol HCl [Ultram] 50 mg PO Q8 PRN #8 tablet 10/31/17 Clotrimazole/Betamethasone 1 appl EXT BID #1 tube 10/27/17 [Lotrisone] Nitrofurantoin Macrocrystals 1 cap PO BID #14 cap 10/27/17 [Macrobid] traMADol [Ultram] 50 mg PO TID #10 tab 10/27/17 Lidocaine [Topicaine] 1 appl TP Q12 PRN #1 tub 01/06/18 traMADol [Ultram] 50 mg PO Q6H PRN #15 tab 03/22/18 - Allergies Allergies/Adverse Reactions: Allergies Allergy/AdvReac Type Severity Reaction Status Date / Time ibuprofen Allergy ITCHING Verified 01/06/18 16:12 Review of Systems ROS Statement: Except As Marked, All Systems Reviewed And Found Negative Constitutional: Negative for: Fever, Chills Cardiovascular: Negative for: Chest Pain, Palpitations Respiratory: Negative for: Cough, Shortness of Breath Gastrointestinal: Negative for: Nausea, Vomiting, Abdominal Pain Musculoskeletal: Positive for: Shoulder Pain Physical Exam - Reviewed Nursing Documentation Reviewed: Yes Vital Signs Reviewed: Yes - Physical Exam Appears: Positive for: Well, Non-toxic, No Acute Distress Head Exam: Positive for: ATRAUMATIC, NORMAL INSPECTION, NORMOCEPHALIC Skin: Positive for: Normal Color, Warm, DRY Eye Exam: Positive for: Normal appearance ENT: Positive for: Normal ENT Inspection Neck: Positive for: Normal, Painless ROM Cardiovascular/Chest: Positive for: Regular Rate, Rhythm Respiratory: Positive for: Normal Breath Sounds. Negative for: Accessory Muscle Use, Respiratory Distress Pulses-Radial (L): 2+ Pulses-Radial (R): 2+ Back: Positive for: Normal Inspection Extremity: Negative for: Normal ROM (Pain with adduction), Tenderness, Deformity Neurologic/Psych: Positive for: Alert, Oriented - ECG O2 Sat by Pulse Oximetry: 100 Pulse Ox Interpretation: Normal Disposition - Clinical Impression Clinical Impression: Chronic shoulder pain - Patient ED Disposition Is Patient to be Admitted: No Counseled Patient/Family Regarding: Diagnosis, Need For Followup, Rx Given - Disposition Disposition: Routine/Home Disposition Time: 22:34 Condition: GOOD Prescriptions: traMADol [Ultram] 50 mg PO Q6H PRN #15 tab PRN Reason: Pain Instructions: Chronic Pain (DC) Forms: [employer] (Polish)
== END 2018-03-22 23:15 | disposition home or self-care (01) ==
LOC: H.ER 20:06
DX: M25.512 Pain in left shoulder (principal); E78.00 Pure hypercholesterolemia, unspecified; F32.9 Major depressive disorder, single episode, unspecified; G89.29 Other chronic pain; I10 Essential (primary) hypertension; M06.9 Rheumatoid arthritis, unspecified; Z86.718 Personal history of other venous thrombosis and embolism; J45.909 Unspecified asthma, uncomplicated

== ENCOUNTER 2018-04-21 14:14 | Emergency (ER) | payer MEDICARE, MEDICAID ==
[2018-04-21 14:15] VITALS: BMI 37.8
--- NOTE | 2018-04-21 15:05 | ED PDOC ---
HPI: Female Pain Time Seen by Provider: 04/21/18 15:04 Chief Complaint (Nursing): Female Genitourinary Chief Complaint (Provider): vaginal bleeding History Per: Patient Additional Complaint(s): 57-year-old female presents with vaginal bleeding that started 1 week ago. Patient's last menstrual cycle was at age 48 and she states that prior to 1 week ago she has not had any vaginal bleeding since she was 48. Patient denies vaginal discharge, dysuria, fever or chills. Patient also has had intermittent left lower quadrant pain associated with nausea but no vomiting, diarrhea or constipation. Patient states she is using approximately 2 pads per hour and she is also passing large clots. PMD; Dr. Hidalgo - [place] Past Medical History Reviewed: Historical Data, Nursing Documentation, Vital Signs Vital Signs: Last Vital Signs Temp 99.3 F 04/21/18 14:18 Pulse 80 04/21/18 14:18 Resp 16 04/21/18 14:18 BP 138/89 04/21/18 14:18 Pulse Ox 98 04/21/18 14:18 - Medical History PMH: Anemia, Arthritis, Asthma, Depression, Deep Vein Thrombosis (left leg), HTN , Hypercholesterolemia, Rheumatoid Arthritis - Surgical History Surgical History: Cholecystectomy - Family History Family History: States: [place], Diabetes, Hypertension - Living Arrangements Living Arrangements: With Family - Social History Current smoker - smoking cessation education provided: No Alcohol: None Drugs: Denies - Home Medications Home Medications: Ambulatory Orders Medication Instructions Recorded Escitalopram [Lexapro] 20 mg PO DAILY 04/15/16 Esomeprazole Magnesium [Nexium] 40 mg PO ACB 04/15/16 Metoprolol Succinate XL [Toprol XL] 25 mg PO DAILY 04/15/16 Fenofibrate [Triglide] 160 mg PO DAILY 06/26/17 Hydroxychloroquine Sulfate 200 mg PO DAILY 06/26/17 [Plaquenil] Rivaroxaban [Xarelto] 15 mg PO DAILY 07/03/17 Lidocaine 5% [Lidoderm] 1 ea TD DAILY #30 patch 07/21/17 Metaxalone [Skelaxin] 800 mg PO TID PRN #20 tablet 07/21/17 traMADol [Ultram] 50 mg PO TID PRN #15 tab 07/21/17 Tramadol HCl [Ultram] 50 mg PO Q8 PRN #8 tablet 09/30/17 Clotrimazole/Betamethasone 1 appl EXT BID #1 tube 10/27/17 [Lotrisone] Nitrofurantoin Macrocrystals 1 cap PO BID #14 cap 10/27/17 [Macrobid] traMADol [Ultram] 50 mg PO TID #10 tab 10/27/17 Lidocaine [Topicaine] 1 appl TP Q12 PRN #1 tub 01/06/18 traMADol [Ultram] 50 mg PO Q6H PRN #15 tab 03/22/18 - Allergies Allergies/Adverse Reactions: Allergies Allergy/AdvReac Type Severity Reaction Status Date / Time ibuprofen Allergy ITCHING Verified 04/21/18 14:18 Review of Systems ROS Statement: Except As Marked, All Systems Reviewed And Found Negative Constitutional: Negative for: Fever, Chills Cardiovascular: Negative for: Chest Pain Respiratory: Negative for: Cough, Shortness of Breath Gastrointestinal: Positive for: Nausea, Abdominal Pain. Negative for: Vomiting , Diarrhea, Constipation, Melena, Hematochezia, Hematemesis, Rectal Pain Genitourinary Female: Positive for: Vaginal Bleeding, Pelvic Pain. Negative for : Dysuria, Hematuria, Vaginal Discharge Physical Exam - Reviewed Nursing Documentation Reviewed: Yes Vital Signs Reviewed: Yes - Physical Exam Appears: Positive for: Well, Non-toxic, No Acute Distress Skin: Positive for: Normal Color. Negative for: Rash Eye Exam: Positive for: Normal appearance Cardiovascular/Chest: Positive for: Regular Rate, Rhythm Respiratory: Positive for: Normal Breath Sounds Gastrointestinal/Abdominal: Positive for: Soft, Tenderness (LLQ). Negative for : Distended, Guarding, Rebound Pelvic Exam: Positive for: Other (Mild amount of bleeding noted from the closed cervical os, no discharge, mild left adnexal tenderness during exam, no cervical motion tenderness, normal bimanual exam) Back: Negative for: L CVA Tenderness, R CVA Tenderness Extremity: Positive for: Normal ROM Neurologic/Psych: Positive for: Alert, Oriented - Laboratory Results Result Diagrams: 04/21/18 16:17 04/21/18 16:17 Urine POC: Negative Urine dip results: Positive for: Leukocyte Esterase (trace), Blood (large), Ketones (trace) - ECG O2 Sat by Pulse Oximetry: 98 Pulse Ox Interpretation: Normal - Other Rad TV US X-Ray: Read By Radiologist X-Ray Interpretation: no acute finding, ovaries not visualized Medical Decision Making Medical Decision Makin57 year old with vaginal bleeding and LLQ pain Plan: Urine dip Urine test UA/Urine culture Genital culture CHL/GC culture CBC CMP PT/PTT TV US IVF PO tylenol IV reglan 7:25 pm: Patient aware of ultrasound results, she still has pain despite Tylenol dose given, tramadol 50 mg tablet administered. Case discussed further with Dr. Kothari. Ultrasound demonstrates that ovaries are not visualized. CT with IV contrast of abdomen and pelvis ordered for further evaluation. Additional fluid bolus administered. Disposition - Clinical Impression Clinical Impression: Pelvic pain - Patient ED Disposition Is Patient to be Admitted: Transfer of Care - Disposition Disposition: Transfer of Care Disposition Time: 20:11 Condition: FAIR Forms: [employer]ise (French) Patient Signed Over To: Jody Merritt Handoff Comments: pending CT results and final disposition Results - Lab Results Lab Results: 04/21/18 04/21/18 04/21/18 16:34 16:17 16:17 WBC RBC Hgb Hct MCV MCH MCHC RDW Plt Count MPV Neut % (Auto) Lymph % (Auto) Gila % (Auto) Eos % (Auto) Baso % (Auto) Neut # (Auto) Lymph # (Auto) Gila # (Auto) Eos # (Auto) Baso # (Auto) PT 15.0 H INR 1.3 H APTT 35.4 Sodium 141 Potassium 4.5 Chloride 101 Carbon Dioxide 27 Anion Gap 18 BUN 22 H Creatinine 0.9 Est GFR ( Amer) > 60 Est GFR (Non-Af Amer) > 60 Random Glucose 109 H Calcium 9.4 Total Bilirubin 0.8 AST 35 ALT 44 Alkaline Phosphatase 88 Total Protein 8.2 Albumin 4.2 Globulin 4.0 H Albumin/Globulin Ratio 1.0 Urine Color Yellow Urine Clarity Slighty-cloudy Urine pH 5.0 Ur Specific Pingree 1.021 Urine Protein Negative Urine Glucose (UA) Neg Urine Ketones Negative Urine Blood Moderate Urine Nitrate Negative Urine Bilirubin Negative Urine Urobilinogen 2.0 H Ur Leukocyte Esterase Small Urine RBC (Auto) 123 H Urine Microscopic WBC 6 H Ur Squamous Epith Cells 2 04/21/18 16:17 WBC 10.2 D RBC 4.46 Hgb 12.9 Hct 39.0 MCV 87.5 MCH 28.9 MCHC 33.0 RDW 15.7 H Plt Count 262 MPV 10.1 Neut % (Auto) 58.9 Lymph % (Auto) 30.7 Gila % (Auto) 9.4 Eos % (Auto) 0.4 Baso % (Auto) 0.6 Neut # (Auto) 6.0 Lymph # (Auto) 3.1 Gila # (Auto) 1.0 H Eos # (Auto) 0.0 Baso # (Auto) 0.1 PT INR APTT Sodium Potassium Chloride Carbon Dioxide Anion Gap BUN Creatinine Est GFR ( Amer) Est GFR (Non-Af Amer) Random Glucose Calcium Total Bilirubin AST ALT Alkaline Phosphatase Total Protein Albumin Globulin Albumin/Globulin Ratio Urine Color Urine Clarity Urine pH Ur Specific P[place] Urine Protein Urine Glucose (UA) Urine Ketones Urine Blood Urine Nitrate Urine Bilirubin Urine Urobilinogen Ur Leukocyte Esterase Urine RBC (Auto) Urine Microscopic WBC Ur Squamous Epith Cells
[2018-04-21] MEDS ORDERED: Sodium Chloride 0.9% 1,000 ML IV STA (15:35)
[2018-04-21 16:39] LABS: BASO # 0.1 K/uL (0.0-0.2); BASO % 0.6 % (0.0-2.0); EOS % 0.4 % (0.0-4.0); HEMOGLOBIN 12.9 g/dL (12.0-16.0); LYMPH # 3.1 K/uL (1.0-4.3); LYMPH % 30.7 % (20.0-40.0); MEAN CELL VOLUME 87.5 fl (81.0-99.0); MEAN CORPUSCULAR HEMOGLOBIN 28.9 pg (27.0-31.0); MEAN PLATELET VOLUME 10.1 fl (7.2-11.7); MONO % 9.4 % (0.0-10.0); NEUT % 58.9 % (50.0-75.0); RBC 4.46 Mil/uL (3.80-5.20); RED CELL DISTRIBUTION WIDTH 15.7 % (11.5-14.5); WHITE BLOOD COUNT 10.2 K/uL (4.8-10.8)
[2018-04-21 16:41] LABS: ALBUMIN 4.2 g/dL (3.5-5.0); CALCIUM 9.4 mg/dL (8.4-10.2); GFR AFRICAN-AMERICAN > 60; GFR NON-AFRICAN AMERICAN > 60
[2018-04-21 16:43] LABS: SQUAMOUS EPITHIAL 2 /hpf (0-5); URINE BILIRUBIN NEGATIVE (NEGATIVE); URINE BLOOD MODERATE (NEGATIVE); URINE CLARITY SLIGHTY-CLOUDY (Clear); URINE COLOR YELLOW (YELLOW); URINE GLUCOSE (UA) NEG (Normal); URINE LEUKOCYTE ESTERASE SMALL Leu/uL (Negative); URINE PROTEIN NEGATIVE (NEGATIVE)
[2018-04-21 16:45] LABS: ALT/SGPT 44 U/L (9-52); AST/SGOT 35 U/L (14-36); BLOOD UREA NITROGEN 22 mg/dl (7-17)
[2018-04-21 16:52] LABS: INR 1.3 (0.9-1.2); PARTIAL THROMBOPLASTIN TIME 35.4 Seconds (25.6-37.1)
--- NOTE | 2018-04-21 18:39 | US ---
HISTORY: Postmenopausal bleeding. Vaginal bleeding. LMP 15 years ago by history. COMPARISON: None available. TECHNIQUE: Transvaginal only. Real -time technique with 2D, duplex and color Doppler FINDINGS: UTERUS: Measures 3.1 x 4.5 x 6.3 cm. Normal in size and appearance. Location of fibroid and size: Submucosal 1.1 x 1.4 x 1.2 cm to the right of the midline in the uterine body. ENDOMETRIUM: Measures 5.3 mm in diameter. Unremarkable. CERVIX: No cervical abnormality identified. RIGHT OVARY: Not visualized LEFT OVARY: Not visualized. FREE FLUID: No significant free fluid noted. OTHER FINDINGS: None. IMPRESSION: No acute findings related to/accounting for the clinical presentation. Limitations of the current examination: Nonvisualization of the adnexa.
[2018-04-21] MEDS ORDERED: Iohexol 300 100 ML IJ ONE (19:36)
[2018-04-21] MEDS ORDERED: Sodium Chloride 0.9% 50 ML IV ONE (19:36)
[2018-04-21 20:13] VITALS: O2SAT 98
--- NOTE | 2018-04-21 21:48 | ED PDOC ---
- Laboratory Results Result Diagrams: 04/21/18 16:17 04/21/18 16:17 Urine POC: Negative - ECG O2 Sat by Pulse Oximetry: 98 - Progress ED Course And Treament: Case endorsed to investigative writer from [place] TRAMMELL pending CT EXAM: CT Abdomen and Pelvis With Intravenous Contrast CLINICAL HISTORY: The patient is a 57 years female; Pain; Abdominal pain; Localized; Left lower quadrant (llq); Prior surgery; Surgery date: 6+ months; Surgery type: Gb removed. Tubal ligation; Additional info: Llq pain, left adnexal pain, vaginal bleeding 04/21/2018 7:06 PM TECHNIQUE: Axial computed tomography images of the abdomen and pelvis with intravenous contrast. All CT scans at this facility use one or more dose reduction techniques, viz.: automated exposure control; ma/kV adjustment per patient size (including targeted exams where dose is matched to indication; i.e. head); or iterative reconstruction technique. CONTRAST: 100 mL of [id number] administered intravenously. COMPARISON: No relevant prior studies available. FINDINGS: Lung bases: Granuloma in the left lung base. ABDOMEN: Liver: Hepatic steatosis. Gallbladder and bile ducts: cholecystectomy Pancreas: Unremarkable. No ductal dilation. Spleen: Unremarkable. No splenomegaly. Adrenals: Unremarkable. No mass. Kidneys and ureters: Unremarkable. No solid mass. No hydronephrosis. Stomach and bowel: Scattered diverticulosis of the colon. No evidence of diverticulitis. PELVIS: Appendix: No findings to suggest acute appendicitis. Bladder: Unremarkable. Reproductive: Small hyperdense lesion in the uterus, likely fibroid. ABDOMEN and PELVIS: Intraperitoneal space: Unremarkable. No free air. No significant fluid collection. Bones/joints: No acute fracture. No dislocation. Soft tissues: Small fat containing umbilical hernia. Vasculature: IVC filter is noted. Atherosclerotic calcifications of the aorta. No abdominal aortic aneurysm. Lymph nodes: Unremarkable. No enlarged lymph nodes. IMPRESSION: 1. Hepatic steatosis. 2. Scattered diverticulosis of the colon. No evidence of diverticulitis. On re-eval, patient resting comfortably; states pain improved. Patient educated on findings, discharged with rx Tramadol (advised for severe pain only, otherwise TylenoL PRN mild-moderate pain) Follow up melon packer Return precautions given Disposition - Clinical Impression Clinical Impression: Pelvic pain, Vaginal bleeding - POA Present On Arrival: None - Disposition [facility]errals: [facility] [Outside] Disposition: Routine/Home Disposition Time: 21:49 Condition: IMPROVED Prescriptions: traMADol [Ultram] 50 mg PO Q8 PRN #10 tab PRN Reason: Pain, Severe (8-10) Instructions: Acute Pelvic Pain Forms: [employer] (Wallisian)
[2018-04-21 22:02] VITALS: BP 132/92; PULSE 71; RESP 17; TEMP 98.3
--- NOTE | 2018-04-22 09:40 | CT ---
PROCEDURE: CT Abdomen and Pelvis with contrast HISTORY: LLQ pain, left adnexal pain, vaginal bleeding COMPARISON: CT abdomen and pelvic images 12/19/2011 noted. That report for that study is not available to me at this time. TECHNIQUE: Contrast dose: 100 mL Omnipaque 300 Radiation dose: Total exam DLP = 970 mGy-cm. This CT exam was performed using one or more of the following dose reduction techniques: Automated exposure control, adjustment of the mA and/or kV according to patient size, and/or use of iterative reconstruction technique. FINDINGS: LOWER THORAX: Unremarkable. LIVER: Diffuse fatty infiltration.. No gross lesion or ductal dilatation. GALLBLADDER AND BILE DUCTS: Nonvisualized -clips in gallbladder fossa -post cholecystectomy status inferred. No suspect dilated ducts. PANCREAS: Unremarkable. No gross lesion or ductal dilatation. SPLEEN: Unremarkable. ADRENALS: Unremarkable. No mass. KIDNEYS AND URETERS: Sub cm left lower pole 3 mm hypodensity too small to characterize. Prior study without IV contrast. . No hydronephrosis. VASCULATURE: An IVC filter is in place the most cephalad apex component of the filter is at the right renal vein takeoff from the IVC. This is unchanged. . The struts appear in some parts beyond the IVC lumen as before. No perforation to the aorta or bowel is appreciated. Regarding its assessment consider correlation with any here prior follow-up per surgeon inserting the IVC filter or per interventional radiologist. Appearance is similar. . No aortic aneurysm. BOWEL: Mild stool retention throughout the colon noted. Mild redundant colon. There is some redundancy to the colon with stool content in left hemipelvis. A few very small diverticuli here are possible. No CT findings to suggest any significant diverticulitis. No obstruction. No gross mural thickening. APPENDIX: Normal appendix. PERITONEUM: Unremarkable. No free fluid. No free air. LYMPH NODES: Unremarkable. No enlarged lymph nodes. BLADDER: Unremarkable. REPRODUCTIVE: Unremarkable. 1.4 C hyperdense area in the right paracentral dishes noted no precontrast studies here noted. The prior CT study was non IV contrast study -no similar hyperdense appearance is noted. This may represent the enhancing uterine lesion. For this consider further evaluation with pelvic ultrasound. The benign-appearing dystrophic like calcification along the left anterolateral uterine fundal border bordering the broad ligament is similar in appearance the left ovary appears separate from the send normal in appearance (axial series 3, image 124 on the current study. Adjacent to this benign-appearing dystrophic calcification is a 1.9 cm hypodensity intimately related with the benign coarse calcifications. This appearance somewhat is slightly exophytic off the left anterolateral uterine border/ broad ligament region is noted on the prior study yet on the prior study was more hyperdense in appearance (prior study series 2, image 71). Left A small cyst in the left broad ligament is compatible with this ; it similarity in size since 2012 suggest benign process. The right ovary is difficult to identify as a discrete entity no worrisome right adnexal appearance suggested. BONES: No acute fracture. Inferior lumbar facet hypertrophic arthrosis. OTHER FINDINGS: None. IMPRESSION: No colitis, obstruction, or diverticulitis. Mild colonic redundancy with moderate stool retention as above. The left antral lateral and superior uterine/broad ligament regional contour/appearance is stable since 2012 small left broad ligament cyst here with contiguous benign-appearing dystrophic calcifications is a consideration. No interval left adnexal pathology noted. There is some hyperdensity in the right paracentral uterus. No pre contrast enhanced studies are available this may represent a small enhancing lesion. For this consider pelvic ultrasound transvaginal imaging to for further assessment IVC filter -details as above. Correlation/reassessed is recommended with the physician who placed the IVC filter. Its appearance is similar to 2012
== END 2018-04-21 22:02 | disposition home or self-care (01) ==
LOC: H.ER 14:14
DX: N93.9 Abnormal uterine and vaginal bleeding, unspecified (principal); R10.2 Pelvic and perineal pain; I10 Essential (primary) hypertension; J45.909 Unspecified asthma, uncomplicated; M06.9 Rheumatoid arthritis, unspecified; N95.0 Postmenopausal bleeding; Z45.2 Encounter for adjustment and management of vascular access device; Z86.718 Personal history of other venous thrombosis and embolism
CPT/HCPCS: 74177; 76830; 80053; 81003; 81025; 85025; 85610; 85730; 87070; 87086; 87491; 87591; 96374; 99284; J2765; J7040; Q9967

== ENCOUNTER 2018-05-14 11:23 | Emergency (ER) | payer MEDICARE, MEDICAID ==
[2018-05-14 11:23] VITALS: BMI 37.8
[2018-05-14 11:28] VITALS: BP 137/91; PULSE 89; RESP 16; O2SAT 96
--- NOTE | 2018-05-14 11:48 | ED PDOC ---
HPI: General Adult Time Seen by Provider: 05/14/18 11:48 Chief Complaint (Provider): left leg pain History Per: Patient Additional Complaint(s): 57-year-old female presents with left foot and ankle pain status post trip and fall. Patient was on her way to a doctor's appointment when she tripped and fell at home. She did not sustain loss of consciousness or head injury. Patient arrives to hospital with her . No medication taken for pain relief prior to arrival. PMD: Dr. Hills Past Medical History Reviewed: Historical Data, Nursing Documentation, Vital Signs Vital Signs: Last Vital Signs Temp 98.0 F 05/14/18 12:15 Pulse 89 05/14/18 12:15 Resp 16 05/14/18 12:15 BP 137/91 H 05/14/18 12:15 Pulse Ox 96 05/14/18 12:17 - Medical History PMH: Anemia, Arthritis, Asthma, Depression, Deep Vein Thrombosis (left leg), HTN , Hypercholesterolemia, Migraine, Rheumatoid Arthritis - Surgical History Surgical History: Cholecystectomy Other surgeries: tubal ligation - Family History Family History: States: Unknown Family Hx, [place], Diabetes, Hypertension - Living Arrangements Living Arrangements: With Family - Social History Current smoker - smoking cessation education provided: No Alcohol: None Drugs: Denies - Home Medications Home Medications: Ambulatory Orders Medication Instructions Recorded Escitalopram [Lexapro] 20 mg PO DAILY 04/15/16 Esomeprazole Magnesium [Nexium] 40 mg PO ACB 04/15/16 Metoprolol Succinate XL [Toprol XL] 25 mg PO DAILY 04/15/16 Fenofibrate [Triglide] 160 mg PO DAILY 06/26/17 Hydroxychloroquine Sulfate 200 mg PO DAILY 06/26/17 [Plaquenil] Rivaroxaban [Xarelto] 15 mg PO DAILY 07/03/17 Lidocaine 5% [Lidoderm] 1 ea TD DAILY #30 patch 07/21/17 Metaxalone [Skelaxin] 800 mg PO TID PRN #20 tablet 07/21/17 traMADol [Ultram] 50 mg PO TID PRN #15 tab 07/21/17 Tramadol HCl [Ultram] 50 mg PO Q8 PRN #8 tablet 09/30/17 Clotrimazole/Betamethasone 1 appl EXT BID #1 tube 11/27/17 [Lotrisone] Nitrofurantoin Macrocrystals 1 cap PO BID #14 cap 10/27/17 [Macrobid] traMADol [Ultram] 50 mg PO TID #10 tab 10/27/17 Lidocaine [Topicaine] 1 appl TP Q12 PRN #1 tub 01/06/18 traMADol [Ultram] 50 mg PO Q6H PRN #15 tab 03/22/18 traMADol [Ultram] 50 mg PO Q8 PRN #10 tab 04/21/18 - Allergies Allergies/Adverse Reactions: Allergies Allergy/AdvReac Type Severity Reaction Status Date / Time ibuprofen Allergy ITCHING Verified 04/21/18 14:18 Review of Systems ROS Statement: Except As Marked, All Systems Reviewed And Found Negative Musculoskeletal: Positive for: Other (left foot and ankle injury) Neurological: Positive for: Other (no head injury or LOC) Physical Exam - Reviewed Nursing Documentation Reviewed: Yes Vital Signs Reviewed: Yes - Physical Exam Appears: Positive for: Well, Non-toxic, No Acute Distress Head Exam: Positive for: ATRAUMATIC Eye Exam: Positive for: Normal appearance Neck: Positive for: Normal, Painless ROM Extremity: Positive for: Other (Swelling and tenderness to left lateral malleolus and dorsal aspect of left foot, no obvious bony deformity, palpable DP pulses, normal distal sensation and capillary refill) Neurologic/Psych: Positive for: Alert, Oriented - ECG O2 Sat by Pulse Oximetry: 96 Pulse Ox Interpretation: Normal - Other Rad Left foot and ankle x-ray X-Ray: Interpreted by Me, Viewed By Me X-Ray Interpretation: no fx, no dis Medical Decision Making Medical Decision Makin y/p F with left foot and ankle x-ray Plan: PO tylenol X-ray left foot and ankle Patient aware of x-ray results, all questions answered. Crutches were provided and patient was taught how to use crutches. See procedure note. Advised tylenol for pain, ice, elevation and follow up with podiatry clinic. Procedures - Splinting Location: left foot and ankle Pre-Made Type: romel wrap, aircast Pre-Proc Neuro Vasc Exam: normal Post-Proc Neuro Vasc Exam: normal Disposition - Clinical Impression Clinical Impression: Ankle sprain, Foot sprain - Patient ED Disposition Is Patient to be Admitted: No Counseled Patient/Family Regarding: Studies Performed, Diagnosis, Need For Followup - Disposition Referrals: Podiatry Clinic [Outside] Disposition Time: 13:48 Condition: STABLE Additional Instructions: Ice, rest and elevate affected area. Take Tylenol every 4-6 hours for pain as needed. Follow-up with podiatry clinic for any persistent symptoms. Instructions: Ankle Sprain (DC), Foot Sprain (DC), How to Use Crutches, Going Up and Down Curbs or Stairs With a Walker or Crutches Forms: [employer] (Kiswahili)
[2018-05-14 12:22] VITALS: TEMP 98
--- NOTE | 2018-05-14 13:38 | RAD ---
PROCEDURE: Left Foot Radiographs. HISTORY: trauma COMPARISON: None. FINDINGS: BONES: Bone alignment and mineralization are normal. There is no acute displaced fracture or bone destruction. There is a prominent plantar calcaneal spur. JOINTS: Normal. SOFT TISSUES: Normal. OTHER FINDINGS: None. IMPRESSION: No acute fracture or dislocation.
--- NOTE | 2018-05-14 13:42 | RAD ---
PROCEDURE: Left Ankle Radiographs. HISTORY: Trauma COMPARISON: None FINDINGS: BONES: There is diffuse bone demineralization.Bone alignment and mineralization are normal. There is no acute displaced fracture or bone destruction. There is a prominent plantar calcaneal spur. JOINTS: Normal. No osteoarthritis. Ankle mortise maintained. Talar dome intact SOFT TISSUES: There is moderate lateral soft tissue swelling. OTHER FINDINGS: None. IMPRESSION: No acute fracture or dislocation. Moderate lateral soft tissue swelling.
== END 2018-05-14 13:50 | disposition home or self-care (01) ==
LOC: H.ER 11:23
DX: S93.402A Sprain of unspecified ligament of left ankle, initial encounter (principal); S93.602A Unspecified sprain of left foot, initial encounter; W01.0XXA Fall on same level from slipping, tripping and stumbling without subsequent striking against object, initial encounter; Y92.89 Other specified places as the place of occurrence of the external cause; F32.9 Major depressive disorder, single episode, unspecified; I10 Essential (primary) hypertension; E78.00 Pure hypercholesterolemia, unspecified; J45.909 Unspecified asthma, uncomplicated; M06.9 Rheumatoid arthritis, unspecified; Z86.718 Personal history of other venous thrombosis and embolism

== ENCOUNTER 2018-07-04 10:56 | Emergency (ER) | payer MEDICARE, OTHER ==
[2018-07-04 10:56] VITALS: BMI 37.8
[2018-07-04 11:37] VITALS: BP 145/80; PULSE 75; RESP 16; TEMP 97.9; O2SAT 100
== END 2018-07-04 11:21 | disposition home or self-care (01) ==
LOC: H.ER 10:56
DX: Z02.89 Encounter for other administrative examinations (principal)

== ENCOUNTER 2018-07-13 14:39 | Emergency (ER) | payer MEDICARE, OTHER ==
[2018-07-13 15:03] VITALS: BMI 36.6
[2018-07-13 15:04] VITALS: RESP 18
[2018-07-13] MEDS ORDERED: Naproxen 500 MG TAB PO STA (15:19)
[2018-07-13] MEDS ORDERED: Naproxen 500 MG TAB PO ONE (15:25)
--- NOTE | 2018-07-13 15:39 | ED PDOC ---
HPI: General Adult Time Seen by Provider: 07/13/18 15:06 Chief Complaint (Nursing): Rib Injury Chief Complaint (Provider): Rib Injury History Per: Patient History/Exam Limitations: no limitations Onset/Duration Of Symptoms: Days (x7) Current Symptoms Are (Timing): Still Present Additional Complaint(s): 57 y/o female with a PMHx of HTN, high cholesterol and depression presents to the ED for evaluation of right sided rib pain. Patient notes that one week ago her father and that she had fallen into a syncopal episode after finding out the news thus hitting her right side. Patient reports of mild pain at first but has been worsening over the last three days. Patient states that earlier today, her applied [id number] topical cream for symptom relief and shortly after broke out into a vesicular rash. Patient reports of taking Tylenol at 2 o'clock today for symptoms with no relief. Patient additionally reports of pain when taking a deep breath and worsens with movement. PMD: Shaik Hills Past Medical History Reviewed: Historical Data, Nursing Documentation, Vital Signs Vital Signs: Last Vital Signs Temp 98.6 F 07/13/18 15:01 Pulse 74 07/13/18 15:01 Resp 18 07/13/18 15:01 BP 135/81 07/13/18 15:01 Pulse Ox 99 07/13/18 17:27 - Medical History PMH: Anemia, Asthma, Bipolar Disorder, Depression, Deep Vein Thrombosis (left leg), Gall Bladder Disease, HTN, Hypercholesterolemia, Kidney Stones ([place]) , Migraine, Chronic Kidney Disease, Rheumatoid Arthritis, Schizophrenia Denies: Diabetes - Surgical History Surgical History: Cholecystectomy - Family History Family History: States: Unknown Family Hx, [place], Diabetes, Hypertension - Social History Current smoker - smoking cessation education provided: No Alcohol: None Drugs: Denies - Home Medications Home Medications: Ambulatory Orders Medication Instructions Recorded Escitalopram [Lexapro] 20 mg PO DAILY 04/15/16 Esomeprazole Magnesium [Nexium] 40 mg PO ACB 04/15/16 Metoprolol Succinate XL [Toprol XL] 25 mg PO DAILY 04/15/16 Fenofibrate [Triglide] 160 mg PO DAILY 06/26/17 Hydroxychloroquine Sulfate 200 mg PO DAILY 06/26/17 [Plaquenil] Rivaroxaban [Xarelto] 15 mg PO DAILY 07/03/17 Clotrimazole/Betamethasone 1 appl EXT BID #1 tube 10/27/17 [Lotrisone] Albuterol HFA [Ventolin HFA 90 2 puff IH DAILY 06/30/18 mcg/actuation (8 g)] Nitrofurantoin Macrocrystals 1 cap PO DAILY 06/30/18 [Macrobid] traMADol [Ultram] 50 mg PO Q8 PRN 06/30/18 Acetaminophen [Acetaminophen 8 650 mg PO Q8 PRN #21 tablet.er 07/13/18 Hour] Acyclovir [Zovirax] 800 mg PO 5XD #35 tablet 07/13/18 Methylprednisolone [Medrol Dose 4 mg PO DAILY #21 mg 07/13/18 Pack (21 tabs)] traMADol [Ultram] 50 mg PO Q6 PRN #12 tab 07/13/18 - Allergies Allergies/Adverse Reactions: Allergies Allergy/AdvReac Type Severity Reaction Status Date / Time ibuprofen Allergy ITCHING Verified 07/04/18 11:01 Review of Systems ROS Statement: Except As Marked, All Systems Reviewed And Found Negative Musculoskeletal: Positive for: Other (Right sided rib pain) Skin: Positive for: Rash (Vesicular) Physical Exam - Reviewed Nursing Documentation Reviewed: Yes Vital Signs Reviewed: Yes - Physical Exam Comments: GENERAL APPEARANCE: Patient is uncomfortable, awake, alert, oriented x 3, in no acute distress. SKIN: Vesicular erythematous rash to the t7 and t8 dermatomes with no evidence of cellulitis, (-) crusting, (-) discharge. EYES: (-) conjunctival pallor, (-) scleral icterus. ENMT: Mucous membranes moist. CHEST AND RESPIRATORY: (+) tenderness to the lateral and anterior right ribs. No palpable deformity. (-) rales, (-) rhonchi, (-) wheezes; breath sounds equal bilaterally. HEART AND CARDIOVASCULAR: (-) irregularity; (-) murmur, (-) gallop. ABDOMEN AND GI: (-) distention. Bowel sounds active; (-) tenderness, (-) guarding, (-) rebound, (-) palpable masses, (-) CVA tenderness. EXTREMITIES: (-) deformity, (-) edema, (+) distal pulses. NEURO AND PSYCH: Mental status as above; (-) focal findings. - ECG O2 Sat by Pulse Oximetry: 99 (RA) Pulse Ox Interpretation: Normal Medical Decision Making Medical Decision Making: Time: 1525 Impression: Acute rib pain, Herpes ulceration Plan: -- Ribs and Chest RT XR -- Naproxen 500 mg PO -- Ultram 50 mg PO -- Zovirax 800 mg PO -- PredniSONE 60 mg PO Time: 1545 RIBS W/ CHEST XR RESULTS FINDINGS: RIGHT RIBS: No acute fracture or focal lesion visualized. LUNGS: The lungs are well inflated and clear. PLEURA: No pneumothorax or pleural fluid. CARDIOVASCULAR: Normal sized heart. No pulmonary vascular congestion. OTHER FINDINGS: Surgical clips in the right upper quadrant are related to prior cholecystectomy.. IMPRESSION: No acute rib fracture. 1730 On re-evaluation, patient reports improvement of symptoms. On exam, patient remains AAOx3, in no acute distress. On exam, neck is supple, lungs CTA, cardiac RRR, neuro exam shows no focal findings. VSS, stable for discharge. Diagnostic results d/w the patient in great detail. Dx of herpes zoster, acute rib pain d/w the patient. Based on history, exam and diagnostic results plan will be for discharge and outpatient follow up with PMD. Advised to follow up with primary care physician in 1-2 days without fail. Advised to take medication as prescribed. Return to the emergency room at any time for any new or worsening symptoms. Patient states she fully agrees with and understands discharge instructions. States that she agrees with the plan and disposition. Verbalized and repeated discharge instructions and plan. I have given the patient opportunity to ask any additional questions. __ Scribe Attestation: Documented by Jannie Burnette, acting as a scribe for Isabel Holley PA-C. Provider Scribe Attestation: All medical record entries made by the Scribe were at my direction and personally dictated by me. I have reviewed the chart and agree that the record accurately reflects my personal performance of the history, physical exam, medical decision making, and the department course for this patient. I have also personally directed, reviewed, and agree with the discharge instructions and disposition. Disposition - Clinical Impression Clinical Impression: Herpes zoster, Rib pain on right side - Patient ED Disposition Is Patient to be Admitted: No Counseled Patient/Family Regarding: Studies Performed, Diagnosis, Need For Followup, Rx Given - Disposition Referrals: Shaik Hills MD [Medical Doctor] - Disposition: Routine/Home Disposition Time: 17:47 Condition: STABLE Additional Instructions: The emergency medical care you received today was directed at your acute symptoms. If you were prescribed any medication, please fill it and take as directed. It may take several days for your symptoms to resolve. Return to the Emergency Department if your symptoms worsen, do not improve, or if you have any other problems. Please contact your doctor in 2 days for re-evaluation and follow up / or call one of the physicians/clinics you have been referred to that are listed on the Patient Visit Information form that is included in your discharge packet. Bring any paperwork you were given at discharge with you along with any medications you are taking to your follow up visit. Our treatment cannot replace ongoing medical care by a primary care provider (PCP) outside of the emergency department. Prescriptions: Acetaminophen [Acetaminophen 8 Hour] 650 mg PO Q8 PRN #21 tablet.er PRN Reason: Pain, Moderate (4-7) Acyclovir [Zovirax] 800 mg PO 5XD #35 tablet Methylprednisolone [Medrol Dose Pack (21 tabs)] 4 mg PO DAILY #21 mg traMADol [Ultram] 50 mg PO Q6 PRN #12 tab PRN Reason: Pain, Severe (8-10) Instructions: Shingles Forms: [employer] (Bermudian) Print Language: YI - POA Present On Arrival: Falls Or Trauma
--- NOTE | 2018-07-13 16:10 | RAD ---
Date of service: 07/13/2018 PROCEDURE: Radiographs of the Chest and Right Ribs. HISTORY: s/p fall COMPARISON: None available. TECHNIQUE: Frontal radiograph of the chest and multiple oblique radiographs of the right ribs were obtained. FINDINGS: RIGHT RIBS: No acute fracture or focal lesion visualized. LUNGS: The lungs are well inflated and clear. PLEURA: No pneumothorax or pleural fluid. CARDIOVASCULAR: Normal sized heart. No pulmonary vascular congestion. OTHER FINDINGS: Surgical clips in the right upper quadrant are related to prior cholecystectomy.. IMPRESSION: No acute rib fracture. Clear lungs with
[2018-07-13 17:56] VITALS: BP 130/72; PULSE 71; TEMP 98.1; O2SAT 98
== END 2018-07-13 17:55 | disposition home or self-care (01) ==
LOC: H.ER 14:39
DX: R07.82 Intercostal pain (principal); B02.9 Zoster without complications; E78.00 Pure hypercholesterolemia, unspecified; F20.9 Schizophrenia, unspecified; I12.9 Hypertensive chronic kidney disease with stage 1 through stage 4 chronic kidney disease, or unspecified chronic kidney disease; Z86.718 Personal history of other venous thrombosis and embolism

== ENCOUNTER 2018-09-05 14:48 | Emergency (ER) | payer MEDICARE, OTHER ==
[2018-09-05 14:49] VITALS: BMI 36.6
[2018-09-05 14:56] VITALS: BP 142/72; PULSE 82; RESP 16; TEMP 98.3; O2SAT 99
--- NOTE | 2018-09-05 15:18 | ED PDOC ---
Lower Extremity Pain/Injury Time Seen by Provider: 09/05/18 14:57 Chief Complaint (Nursing): Lower Extremity Problem/Injury Chief Complaint (Provider): Right Knee Pain History Per: Patient History/Exam Limitations: no limitations Onset/Duration Of Symptoms: Hrs Current Symptoms Are (Timing): Still Present Additional Complaint(s): 57 year old female with HTN presents to the ER for an evaluation of right knee pain onset today. 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 She did not take any pain medication and she is not taking any anti-coagulants. Patient has moderate pain and swelling. She denies fever, numbness or tingling. PMD: Shaik Hills Past Medical History Reviewed: Historical Data, Nursing Documentation, Vital Signs Vital Signs: Last Vital Signs Temp 98.3 F 09/05/18 14:54 Pulse 82 09/05/18 14:54 Resp 16 09/05/18 14:54 BP 142/72 09/05/18 14:54 Pulse Ox 99 09/05/18 14:54 - Medical History PMH: Anemia, Asthma, Bipolar Disorder, Depression, Deep Vein Thrombosis (left leg), Gall Bladder Disease, HTN, Hypercholesterolemia, Kidney Stones ([place]), Migraine, Chronic Kidney Disease, Rheumatoid Arthritis, Schizophrenia Denies: Diabetes - Surgical History Surgical History: Cholecystectomy - Family History Family History: States: Unknown Family Hx, [place], Diabetes, Hypertension - Social History Current smoker - smoking cessation education provided: No Alcohol: None Drugs: Denies - Home Medications Home Medications: Ambulatory Orders Medication Instructions Recorded Escitalopram [Lexapro] 20 mg PO DAILY 04/15/16 Esomeprazole Magnesium [Nexium] 40 mg PO ACB 04/15/16 Metoprolol Succinate XL [Toprol XL] 25 mg PO DAILY 04/15/16 Fenofibrate [Triglide] 160 mg PO DAILY 06/26/17 Hydroxychloroquine Sulfate 200 mg PO DAILY 06/26/17 [Plaquenil] Rivaroxaban [Xarelto] 15 mg PO DAILY 07/03/17 Clotrimazole/Betamethasone 1 appl EXT BID #1 tube 10/27/17 [Lotrisone] Albuterol HFA [Ventolin HFA 90 2 puff IH DAILY 06/30/18 mcg/actuation (8 g)] Nitrofurantoin Macrocrystals 1 cap PO DAILY 06/30/18 [Macrobid] traMADol [Ultram] 50 mg PO Q8 PRN 06/30/18 Acetaminophen [Acetaminophen 8 650 mg PO Q8 PRN #21 tablet.er 07/13/18 Hour] Acyclovir [Zovirax] 800 mg PO 5XD #35 tablet 07/13/18 Methylprednisolone [Medrol Dose 4 mg PO DAILY #21 mg 07/13/18 Pack (21 tabs)] traMADol [Ultram] 50 mg PO Q6 PRN #12 tab 07/13/18 traMADol [Ultram] 50 mg PO Q6 PRN #8 tab 09/05/18 - Allergies Allergies/Adverse Reactions: Allergies Allergy/AdvReac Type Severity Reaction Status Date / Time ibuprofen Allergy ITCHING Verified 07/04/18 11:01 Review of Systems ROS Statement: Except As Marked, All Systems Reviewed And Found Negative Constitutional: Negative for: Fever Musculoskeletal: Positive for: Other (right knee pain) Neurological: Negative for: Weakness, Numbness, Other (tingling ) Psych: Negative for: Suicidal ideation (homicidal ideation) Physical Exam - Reviewed Nursing Documentation Reviewed: Yes Vital Signs Reviewed: Yes - Physical Exam Appears: Positive for: Non-toxic, No Acute Distress Head Exam: Positive for: ATRAUMATIC, NORMAL INSPECTION, NORMOCEPHALIC Skin: Positive for: Normal Color, Warm, Dry. Negative for: Rash Eye Exam: Positive for: Normal appearance Extremity: Positive for: Tenderness (no bovious diffusion ), Swelling (has brusing, anterior patella), Other (PE limited due to pain, some ecchymosis). Negative for: Deformity Neurologic/Psych: Positive for: Alert, Oriented (x3). Negative for: Motor/Sensory Deficits - ECG O2 Sat by Pulse Oximetry: 99 (RA) Pulse Ox Interpretation: Normal - Progress ED Course And Treament: acetaminophen 650 mg x 1 dose without relief Morphine 4mg IM x dose zofran 4 mg odt Medical Decision Making Medical Decision Making: Time: 1503 --Knee 3 Views --Morphine 4mg --Acetaminophen 650mg --Zofran ODT 4mg --Reevaluation Time: 1609 PROCEDURE: Right Knee Radiographs. HISTORY: knee injury COMPARISON: None. FINDINGS: BONES: Three views of the right knee were performed. Mild degenerative changes are noted. No fracture is seen. No joint effusion is noted. Tibial plateaus are intact. No loose bodies are seen. Patella appears in normal location. JOINTS: See above JOINT EFFUSION: None. OTHER FINDINGS: None. IMPRESSION: Mild degenerative changes. No fracture. Scribe Attestation: Documented by Oziel Aponte, acting as a scribe for Joselo Luque PA-C. Provider Scribe Attestation: All medical record entries made by the Scribe were at my direction and personally dictated by me. I have reviewed the chart and agree that the record accurately reflects my personal performance of the history, physical exam, medic al decision making, and the department course for this patient. I have also personally directed, reviewed, and agree with the discharge instructions and disposition. Disposition - Clinical Impression Clinical Impression: Knee injury - Patient ED Disposition Is Patient to be Admitted: No - Disposition Referrals: Live Kumar MD [Staff Provider] - Disposition: Routine/Home Disposition Time: 16:27 Condition: FAIR Prescriptions: traMADol [Ultram] 50 mg PO Q6 PRN #8 tab PRN Reason: Pain, Severe (8-10) Instructions: Knee Pain (DC), Contusion (DC) Forms: [facility] ED School/Work Excuse
[2018-09-05] MEDS ORDERED: Morphine 4 MG/ML VIAL IM ONE (16:06)
--- NOTE | 2018-09-05 16:11 | RAD ---
Date of service: 09/05/2018 PROCEDURE: Right Knee Radiographs. HISTORY: knee injury COMPARISON: None. FINDINGS: BONES: Three views of the right knee were performed. Mild degenerative changes are noted. No fracture is seen. No joint effusion is noted. Tibial plateaus are intact. No loose bodies are seen. Patella appears in normal location. JOINTS: See above JOINT EFFUSION: None. OTHER FINDINGS: None. IMPRESSION: Mild degenerative changes. No fracture.
== END 2018-09-05 16:42 | disposition home or self-care (01) ==
LOC: H.ER 14:48
DX: S89.91XA Unspecified injury of right lower leg, initial encounter (principal); W19.XXXA Unspecified fall, initial encounter; Y92.000 Kitchen of unspecified non-institutional (private) residence as the place of occurrence of the external cause; E78.00 Pure hypercholesterolemia, unspecified; F20.9 Schizophrenia, unspecified; I12.9 Hypertensive chronic kidney disease with stage 1 through stage 4 chronic kidney disease, or unspecified chronic kidney disease; Z86.718 Personal history of other venous thrombosis and embolism
CPT/HCPCS: 73562; 96372; 99283; J2270

== ENCOUNTER 2019-02-08 10:40 | Emergency (ER) | payer MEDICARE, OTHER ==
[2019-02-08 10:42] VITALS: BMI 37.8
[2019-02-08 10:45] VITALS: RESP 18
[2019-02-08] MEDS ORDERED: Alum-Mag Hydrox-Simethicone Susp (30 mL) PO ONE (11:59)
--- NOTE | 2019-02-08 12:11 | ED PDOC ---
HPI: Abdomen Time Seen by Provider: 02/08/19 11:10 Chief Complaint (Nursing): Abdominal Pain Chief Complaint (Provider): Abdominal pain History Per: Patient History/Exam Limitations: no limitations Location Of Pain/Discomfort: Epigastric Additional Complaint(s): 58yo female with history of gastritis, high cholesterol, hypertension, comes to ER for evaluation of epigastric pain x 3 days with nausea and vomiting. She denies any associated fever, chills, diarrhea and offers no additional compla ints. No medication taken for symptoms. PMD: Dr. Hills Past Medical History Reviewed: Historical Data, Nursing Documentation, Vital Signs Vital Signs: Last Vital Signs Temp 98.7 F 02/08/19 10:42 Pulse 90 02/08/19 10:42 Resp 18 02/08/19 10:42 BP 149/94 H 02/08/19 10:42 Pulse Ox 99 02/08/19 10:42 - Medical History PMH: Anemia, Asthma, Bipolar Disorder, Depression, Deep Vein Thrombosis (left leg), Gastritis, Gall Bladder Disease, HTN, Hypercholesterolemia, Kidney Stones ([place]), Migraine, Chronic Kidney Disease, Rheumatoid Arthritis, Schizophrenia Denies: Diabetes - Surgical History Surgical History: Cholecystectomy - Family History Family History: States: Unknown Family Hx, [place], Diabetes, Hypertension - Home Medications Home Medications: Ambulatory Orders Medication Instructions Recorded Escitalopram [Lexapro] 20 mg PO DAILY 04/15/16 Esomeprazole Magnesium [Nexium] 40 mg PO ACB 04/15/16 Metoprolol Succinate XL [Toprol XL] 25 mg PO DAILY 04/15/16 Fenofibrate [Triglide] 160 mg PO DAILY 06/26/17 Hydroxychloroquine Sulfate 200 mg PO DAILY 06/26/17 [Plaquenil] Rivaroxaban [Xarelto] 15 mg PO DAILY 07/03/17 Clotrimazole/Betamethasone 1 appl EXT BID #1 tube 10/27/17 [Lotrisone] Albuterol HFA [Ventolin HFA 90 2 puff IH DAILY 06/30/18 mcg/actuation (8 g)] Nitrofurantoin Macrocrystals 1 cap PO DAILY 06/30/18 [Macrobid] traMADol [Ultram] 50 mg PO Q8 PRN 06/30/18 Acetaminophen [Acetaminophen 8 650 mg PO Q8 PRN #21 tablet.er 07/13/18 Hour] Acyclovir [Zovirax] 800 mg PO 5XD #35 tablet 07/13/18 Methylprednisolone [Medrol Dose 4 mg PO DAILY #21 mg 07/13/18 Pack (21 tabs)] traMADol [Ultram] 50 mg PO Q6 PRN #12 tab 07/13/18 traMADol [Ultram] 50 mg PO Q6 PRN #8 tab 09/05/18 Albuterol HFA [Ventolin HFA 90 1 - 2 puff IH Q4H PRN #1 bottle 02/08/19 mcg/actuation (8 g)] Famotidine [Pepcid] 20 mg PO DAILY PRN #15 tab 02/08/19 - Allergies Allergies/Adverse Reactions: Allergies Allergy/AdvReac Type Severity Reaction Status Date / Time ibuprofen Allergy ITCHING Verified 07/04/18 11:01 Review of Systems ROS Statement: Except As Marked, All Systems Reviewed And Found Negative Constitutional: Negative for: Fever, Chills Gastrointestinal: Positive for: Nausea, Vomiting, Abdominal Pain. Negative for: Diarrhea Physical Exam - Reviewed Nursing Documentation Reviewed: Yes Vital Signs Reviewed: Yes - Physical Exam Appears: Positive for: No Acute Distress Head Exam: Positive for: ATRAUMATIC, NORMAL INSPECTION, NORMOCEPHALIC Skin: Positive for: Normal Color Eye Exam: Positive for: EOMI, PERRL Neck: Positive for: Supple Cardiovascular/Chest: Positive for: Regular Rate, Rhythm Respiratory: Positive for: Normal Breath Sounds. Negative for: Respiratory Distress Gastrointestinal/Abdominal: Positive for: Bowel Sounds, Soft, Tenderness (mild epigastric tenderness; no right lower or upper uadrant tenderness. ). Negative for: Mass, Distended, Guarding, Rebound Back: Positive for: Normal Inspection. Negative for: L CVA Tenderness, R CVA Tenderness Extremity: Positive for: Normal ROM. Negative for: Pedal Edema, Deformity Neurological/Psych: Positive for: Awake, Alert, Oriented (x 3) - Laboratory Results Result Diagrams: 02/08/19 12:00 02/08/19 12:00 - ECG O2 Sat by Pulse Oximetry: 99 (RA) Pulse Ox Interpretation: Normal Medical Decision Making Medical Decision Making: Impression: 58yo female with epigastric abdominal pain, consisitent with gastritis Plan: -- Labs -- Protonix 40mg IV -- Pepcid 20mg IV -- Maalox 30ml PO 1316 Labs reviewed, no clinically significant abnormalities noted. 1323 Patient reports feeling much better, and noted to be walking around ED and is in no acute distress. reeval of abdomen shows no tenderness. she is tolerated po. Patient informed to take medications as prescribed and to follow up with PMD in 2-3 days. Instructed on dietary changes like decreased caffiene, alcohol and decreased spicy food intake, which patient agrees to. Scribe Attestation: Documented by Sissy Hammonds acting as a scribe for Radha Moon MD. Provider Attestation: All medical record entries made by the Scribe were at my direction and personally dictated by me. I have reviewed the chart and agree that the record accurately reflects my personal performance of the history, physical exam, medical decision making, and the department course for this patient. I have also personally directed, reviewed, and agree with the discharge instructions and disposition. Disposition - Clinical Impression Clinical Impression: Gastritis - Patient ED Disposition Is Patient to be Admitted: No Counseled Patient/Family Regarding: Studies Performed, Diagnosis, Need For Followup - Disposition Referrals: Al Jennings MD [Staff Provider] - Disposition: Routine/Home Disposition Time: 13:24 Condition: IMPROVED Additional Instructions: FOLLOW UP WITH YOUR PRIMARY DOCTOR IN 1-2 DAYS (DR HILLS) AND POSSIBLE GI REFERRAL AVOID CAFFEINE, ALCOHOL AND SPICY FOODS RETURN TO THE ED WITH ANY WORSENING OR CONCERNING SYMPTOMS Prescriptions: Albuterol HFA [Ventolin HFA 90 mcg/actuation (8 g)] 1 - 2 puff IH Q4H PRN #1 bottle PRN Reason: Wheezing Famotidine [Pepcid] 20 mg PO DAILY PRN #15 tab PRN Reason: Heartburn Instructions: Gastritis (DC) Forms: [id number] bake (Arabic)
[2019-02-08 12:17] LABS: BASO % 0.3 % (0.0-2.0); EOS # 0.1 K/uL (0.0-0.7); EOS % 0.8 % (0.0-4.0); HEMOGLOBIN 12.4 g/dL (12.0-16.0); LYMPH # 2.5 K/uL (1.0-4.3); MEAN CORPUSCULAR HEMOGLOBIN 27.5 pg (27.0-31.0); MEAN CORPUSCULAR HGB CONC 32.7 g/dL (33.0-37.0); MEAN PLATELET VOLUME 9.6 fl (7.2-11.7); MONO # 0.6 K/uL (0.0-0.8); MONO % 9.3 % (0.0-10.0); NEUT # 3.1 K/uL (1.8-7.0); NEUT % 49.6 % (50.0-75.0); NRBC % 0.1 % (0.0-0.0); RBC 4.5 Mil/uL (3.80-5.20); RED CELL DISTRIBUTION WIDTH 17.6 % (11.5-14.5); WHITE BLOOD COUNT 6.3 K/uL (4.8-10.8)
[2019-02-08] MEDS ORDERED: Alum-Mag Hydrox-Simethicone Susp (30 mL) ONE (12:27)
[2019-02-08 12:28] LABS: ALB/GLOB RATIO 1.1 (1.0-2.1); ALBUMIN 4.3 g/dL (3.5-5.0); ALT/SGPT 33 U/L (9-52); AST/SGOT 34 U/L (14-36); BLOOD UREA NITROGEN 10 mg/dl (7-17); CALCIUM 9.8 mg/dL (8.4-10.2); GFR NON-AFRICAN AMERICAN > 60; LIPASE 91 U/L (23-300)
[2019-02-08] MEDS ORDERED: Sodium Chloride 0.9% 500 ML IV STA (13:31)
[2019-02-08 14:53] VITALS: BP 122/85; PULSE 81; TEMP 97.9
[2019-02-09 07:24] VITALS: O2SAT 99
== END 2019-02-08 14:35 | disposition home or self-care (01) ==
LOC: H.ER 10:40
DX: K29.70 Gastritis, unspecified, without bleeding (principal); Z86.59 Personal history of other mental and behavioral disorders; I12.9 Hypertensive chronic kidney disease with stage 1 through stage 4 chronic kidney disease, or unspecified chronic kidney disease; J45.909 Unspecified asthma, uncomplicated; Z86.718 Personal history of other venous thrombosis and embolism; Z87.442 Personal history of urinary calculi; M06.9 Rheumatoid arthritis, unspecified; N18.9 Chronic kidney disease, unspecified; Z79.899 Other long term (current) drug therapy; E78.00 Pure hypercholesterolemia, unspecified
CPT/HCPCS: 80053; 83690; 85025; 96374; 96375; 99284; C9113; J7030

== ENCOUNTER 2019-02-16 17:59 | Emergency (ER) | payer MEDICARE, OTHER ==
[2019-02-16 17:59] VITALS: BMI 37.8
[2019-02-16 18:28] VITALS: BP 128/87; PULSE 83; RESP 16; TEMP 98.2; O2SAT 95
--- NOTE | 2019-02-16 18:48 | ED PDOC ---
HPI: Female Pain Time Seen by Provider: 02/16/19 18:30 Chief Complaint (Nursing): Female Genitourinary Chief Complaint (Provider): female genitourinary History Per: Patient History/Exam Limitations: no limitations Onset/Duration Of Symptoms: Hrs (5x hours) Current Symptoms Are (Timing): Still Present Severity: Moderate Quality Of Discomfort: Burning Associated Symptoms: Urinary Symptoms (dysuria, decrease in urine output) Additional Complaint(s): 58 year old female with a past medical history of hypercholesterolemia, rheumatoid arthritis, depression presents to the ED for an evaluation of burning with urination that started this afternoon. Patient states that this morning she urinated normally, and this afternoon she started experiencing pain and discomfort, and states that only a few drops come out when she tries to urinate. Patient states that she is sexually active, denies using condoms, and does not have concern for STDs and does not want testing or treatment. Otherwise:(-)back or flank pain (-) fevers, (-) chills, (-) nausea, (-) vomiting, (-) abdominal pain, (-) vaginal discharge. PMD: Shaik Reinier BRANNON Past Medical History Reviewed: Historical Data, Nursing Documentation, Vital Signs Vital Signs: Last Vital Signs Temp 98.2 F 02/16/19 18:25 Pulse 83 02/16/19 18:25 Resp 16 02/16/19 18:25 BP 128/87 02/16/19 18:25 Pulse Ox 95 02/16/19 18:25 TAMIKA Report Viewed: Yes - Medical History PMH: Anemia, Asthma, Bipolar Disorder, Depression, Deep Vein Thrombosis (left leg), Gastritis, Gall Bladder Disease, HTN, Hypercholesterolemia, Kidney Stones ([place]ER [place]), Migraine, Rheumatoid Arthritis, Schizophrenia Denies: Diabetes - Surgical History Surgical History: Cholecystectomy - Family History Family History: States: [place], Diabetes, Hypertension - Social History Current smoker - smoking cessation education provided: No Alcohol: None Drugs: Denies - Home Medications Home Medications: Ambulatory Orders Medication Instructions Recorded Escitalopram [Lexapro] 20 mg PO DAILY 04/15/16 Esomeprazole Magnesium [Nexium] 40 mg PO ACB 04/15/16 Metoprolol Succinate XL [Toprol XL] 25 mg PO DAILY 04/15/16 Fenofibrate [Triglide] 160 mg PO DAILY 06/26/17 Hydroxychloroquine Sulfate 200 mg PO DAILY 06/26/17 [Plaquenil] Rivaroxaban [Xarelto] 15 mg PO DAILY 07/03/17 Clotrimazole/Betamethasone 1 appl EXT BID #1 tube 10/27/17 [Lotrisone] Albuterol HFA [Ventolin HFA 90 2 puff IH DAILY 06/30/18 mcg/actuation (8 g)] Nitrofurantoin Macrocrystals 1 cap PO DAILY 06/30/18 [Macrobid] traMADol [Ultram] 50 mg PO Q8 PRN 06/30/18 Acetaminophen [Acetaminophen 8 650 mg PO Q8 PRN #21 tablet.er 07/13/18 Hour] Acyclovir [Zovirax] 800 mg PO 5XD #35 tablet 07/13/18 Methylprednisolone [Medrol Dose 4 mg PO DAILY #21 mg 07/13/18 Pack (21 tabs)] traMADol [Ultram] 50 mg PO Q6 PRN #12 tab 07/13/18 traMADol [Ultram] 50 mg PO Q6 PRN #8 tab 09/05/18 Albuterol HFA [Ventolin HFA 90 1 - 2 puff IH Q4H PRN #1 bottle 02/08/19 mcg/actuation (8 g)] Famotidine [Pepcid] 20 mg PO DAILY PRN #15 tab 02/08/19 Nitrofurantoin Macrocrystals 100 mg PO BID 5 Days #10 cap 02/16/19 [Macrobid] Phenazopyridine [Pyridium] 200 mg PO TID #6 tab 02/16/19 - Allergies Allergies/Adverse Reactions: Allergies Allergy/AdvReac Type Severity Reaction Status Date / Time ibuprofen Allergy ITCHING Verified 02/16/19 18:25 Review of Systems ROS Statement: Except As Marked, All Systems Reviewed And Found Negative Constitutional: Negative for: Fever, Chills Gastrointestinal: Negative for: Nausea, Vomiting, Abdominal Pain Genitourinary Female: Positive for: Dysuria. Negative for: Vaginal Discharge Musculoskeletal: Positive for: Other (decrease in urine output) Physical Exam - Reviewed Nursing Documentation Reviewed: Yes Vital Signs Reviewed: Yes - Physical Exam Comments: GENERAL APPEARANCE: Patient is awake, alert, oriented x 3, in no acute distress. SKIN: Warm, dry; (-) cyanosis. EYES: (-) conjunctival pallor. ENMT: Mucous membranes _moist. Airway patent: (-) stridor. Pharynx: (-) swelling, (-) erythema. NECK: (-) tenderness, (-) stiffness, (-) lymphadenopathy. CHEST AND RESPIRATORY: (-) wheezing; (-) rales, (-) rhonchi, (-) rub; breath sounds equal bilaterally. HEART AND CARDIOVASCULAR: (-) irregularity; (-) murmur, (-) gallop. BACK: (-)CVAT (-)midline tenderness (+)FROM ABDOMEN AND GI: Soft; normal bowel sounds, (+) very mild suprapubic tenderness. (-) rebound, (-) guarding, (-) organomegaly, (-) masses. EXTREMITIES: (-) deformity, (-) edema. NEURO AND PSYCH: Mental status as above; (-) focal findings. - ECG O2 Sat by Pulse Oximetry: 95 (RA) Pulse Ox Interpretation: Normal Medical Decision Making Medical Decision Makin:30 Initial impression: 58 year old female with dysuria likely urinary tract infection Initial plan: * urine culture * urinalysis * pyridium 200 mg PO * reevaluation 19:40 UA results as listed below showing UTI, will treat with macrobid pending culture Re eval pt is feeling mild improvement, no abdominal pain, just urinary discomfort. Pt has a PMD she will follow up with Discussed results, diagnosis, treatment, return precautions and f/u with pt who is understanding and stable for dc ScribeAttestation: Documented byIsabel Chapa, acting as a scribe for Hebert Qiu PA-C. Provider ScribeAttestation: All medical record entries made by the Scribe were at my direction and personally dictated by me. I have reviewed the chart and agree that the record accurately reflects my personal performance of the history, physical exam, medical decision making, and the department course for this patient. I have also personally directed, reviewed, and agree with the discharge instructions and disposition. Disposition - Clinical Impression Clinical Impression: Genitourinary Pain, Female genitourinary symptoms, UTI (urinary tract infection) - Patient ED Disposition Is Patient to be Admitted: No Counseled Patient/Family Regarding: Studies Performed, Diagnosis, Need For Followup, Rx Given - Disposition Referrals: your, primary doctor [Other] [facility] [Outside] Disposition: Routine/Home Disposition Time: 19:47 Condition: STABLE Additional Instructions: Return to ED for new or worsening symptoms, fever >100.4, increasing abdominal pain, vomiting, back pain, vaginal discharge. Follow up with your primary care doctor in 5-7 days. Take medications as prescribed. Prescriptions: Nitrofurantoin Macrocrystals [Macrobid] 100 mg PO BID 5 Days #10 cap Phenazopyridine [Pyridium] 200 mg PO TID #6 tab Instructions: Urinary Tract Infections in Adults Forms: [employer] (Hong Konger) Print Language: BELARUSIAN - POA Present On Arrival: None Results - Lab Results Lab Results: 02/16/19 19:16 Urine Color [place] Urine Clarity Cloudy Urine pH 5.0 Ur Specific [place] 1.029 Urine Protein 100 Urine Glucose (UA) Neg Urine Ketones Trace Urine Blood Negative Urine Nitrate Negative Urine Bilirubin Negative Urine Urobilinogen 1.0 Ur Leukocyte Esterase Large Urine RBC (Auto) 7 H Urine Microscopic WBC 627 H Ur Squamous Epith Cells 7 H Urine Bacteria Rare
[2019-02-16 19:29] LABS: SQUAMOUS EPITHIAL 7 /hpf (0-5); URINE BACTERIA RARE (<OCC); URINE BILIRUBIN NEGATIVE (NEGATIVE); URINE BLOOD NEGATIVE (NEGATIVE); URINE CLARITY CLOUDY (Clear); URINE COLOR AMBER (YELLOW); URINE GLUCOSE (UA) NEG (NEGATIVE); URINE LEUKOCYTE ESTERASE LARGE Leu/uL (Negative); URINE PROTEIN 100 mg/dL (NEGATIVE)
== END 2019-02-16 20:00 | disposition home or self-care (01) ==
LOC: H.ER 17:59
DX: R10.2 Pelvic and perineal pain (principal); N39.0 Urinary tract infection, site not specified; Z86.59 Personal history of other mental and behavioral disorders; I10 Essential (primary) hypertension; J45.909 Unspecified asthma, uncomplicated; Z79.899 Other long term (current) drug therapy; Z87.442 Personal history of urinary calculi; Z86.718 Personal history of other venous thrombosis and embolism

== ENCOUNTER 2019-04-06 13:57 | Emergency (ER) | payer MEDICARE, OTHER ==
[2019-04-06 13:58] VITALS: BMI 37.8
[2019-04-06 14:41] VITALS: TEMP 98.2
--- NOTE | 2019-04-06 15:46 | ED PDOC ---
HPI: Female Pain Time Seen by Provider: 04/06/19 15:04 Chief Complaint (Nursing): Female Genitourinary Chief Complaint (Provider): Female Genitourinary History Per: Patient History/Exam Limitations: no limitations Onset/Duration Of Symptoms: Persistent (x1 week) Current Symptoms Are (Timing): Still Present Additional Complaint(s): 58 year old female presents to the emergency department with a complaint of vaginal pain and bleeding ongoing for 1 week but worsen today. LMP was 17 years ago and patient has not had [facility] follow up nor any physical complaints since men opause. Otherwise, no reports of dizziness, weakness, or abdominal pain. PCP: Dr. Shaik Hills Past Medical History Reviewed: Historical Data, Nursing Documentation, Vital Signs Vital Signs: Last Vital Signs Temp 98.2 F 04/06/19 14:38 Pulse 99 H 04/06/19 14:38 Resp 16 04/06/19 14:38 BP 109/80 04/06/19 14:38 Pulse Ox 97 04/06/19 14:38 Primary Care Provider: Shaik Hills - Medical History PMH: Anemia, Asthma, Bipolar Disorder, Depression, Deep Vein Thrombosis (left leg), Gastritis, Gall Bladder Disease, HTN, Hypercholesterolemia, Kidney Stones ([place]), Migraine, Chronic Kidney Disease, Rheumatoid Arthritis, Schizophrenia Denies: Diabetes - Surgical History Surgical History: Cholecystectomy - Family History Family History: States: Unknown Family Hx, [place], Diabetes, Hypertension - Home Medications Home Medications: Ambulatory Orders Medication Instructions Recorded Escitalopram [Lexapro] 20 mg PO DAILY 04/15/16 Esomeprazole Magnesium [Nexium] 40 mg PO ACB 04/15/16 Metoprolol Succinate XL [Toprol XL] 25 mg PO DAILY 04/15/16 Fenofibrate [Triglide] 160 mg PO DAILY 06/26/17 Hydroxychloroquine Sulfate 200 mg PO DAILY 06/26/17 [Plaquenil] Rivaroxaban [Xarelto] 15 mg PO DAILY 07/03/17 Clotrimazole/Betamethasone 1 appl EXT BID #1 tube 10/27/17 [Lotrisone] Albuterol HFA [Ventolin HFA 90 2 puff IH DAILY 06/30/18 mcg/actuation (8 g)] Nitrofurantoin Macrocrystals 1 cap PO DAILY 07/31/18 [Macrobid] traMADol [Ultram] 50 mg PO Q8 PRN 06/30/18 Acetaminophen [Acetaminophen 8 650 mg PO Q8 PRN #21 tablet.er 07/13/18 Hour] Acyclovir [Zovirax] 800 mg PO 5XD #35 tablet 07/13/18 Methylprednisolone [Medrol Dose 4 mg PO DAILY #21 mg 07/13/18 Pack (21 tabs)] traMADol [Ultram] 50 mg PO Q6 PRN #12 tab 07/13/18 traMADol [Ultram] 50 mg PO Q6 PRN #8 tab 09/05/18 Albuterol HFA [Ventolin HFA 90 1 - 2 puff IH Q4H PRN #1 bottle 02/08/19 mcg/actuation (8 g)] Famotidine [Pepcid] 20 mg PO DAILY PRN #15 tab 02/08/19 Nitrofurantoin Macrocrystals 100 mg PO BID 5 Days #10 cap 02/16/19 [Macrobid] Phenazopyridine [Pyridium] 200 mg PO TID #6 tab 02/16/19 Naproxen 500 mg PO BID #60 tab 04/06/19 - Allergies Allergies/Adverse Reactions: Allergies Allergy/AdvReac Type Severity Reaction Status Date / Time ibuprofen Allergy ITCHING Verified 04/06/19 14:38 Review of Systems ROS Statement: Except As Marked, All Systems Reviewed And Found Negative Gastrointestinal: Negative for: Abdominal Pain Genitourinary Female: Positive for: Vaginal Bleeding, Pelvic Pain Neurological: Negative for: Weakness, Dizziness Physical Exam - Reviewed Nursing Documentation Reviewed: Yes Vital Signs Reviewed: Yes - Physical Exam Appears: Positive for: No Acute Distress, Uncomfortable Gastrointestinal/Abdominal: Positive for: Normal Exam, Soft. 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 Negative for: Active Bleeding, Mass (or visible tissue/abnormalities) Extremity: Positive for: Normal ROM (upper/lower) Neurological/Psych: Positive for: Awake, Alert, Normal Tone - Laboratory Results Result Diagrams: 04/06/19 15:00 04/06/19 15:00 - ECG O2 Sat by Pulse Oximetry: 97 (RA) Pulse Ox Interpretation: Normal Medical Decision Making Medical Decision Making: Time: 1517 Initial Plan: work up for new onset of vaginal bleeding after menopause. * Labs * US pelvis/transvaginal 183 US Pelvis/Transvaginal FINDINGS: UTERUS: Measures 7.2 x 4.4 x 3.0 cm. Uterus is normal in size, anteverted with mildly heterogeneous myometrium but without focal mass identified. Interpretation is primarily made by transvaginal ultrasonography as detailed soft tissue is poor from the transabdominal exam due to body habitus and lack of adequate urinary bladder distension. Previously identified small posterior fundal, nearly isoechoic fibroid is not clearly identified currently. ENDOMETRIUM: Measures 3.0 mm in diameter. Unremarkable. CERVIX: No cervical abnormality identified. RIGHT OVARY: Not identified. No suspicious adnexal mass or fluid collection appreciable. LEFT OVARY: Not identified. No suspicious adnexal mass or fluid collection appreciable. FREE FLUID: No significant free fluid noted. OTHER FINDINGS: None. IMPRESSION: Normal size uterus identified without focal cyst or solid parenchymal mass but with mildly heterogeneous parenchyma noted instead. Prior small posterior fundal, nearly isoechoic fibroid is not clearly identified currently. No suspic ious endometrial or cervical findings. No suspicious adnexal finding either, bilaterally. Neither ovary is identified, however, could be a function of prior bilateral oophorectomy or atrophy versus obscuring by overlying bowel gas. 185 Patient to be discharged home with instructions to follow up with [facility] Informed to take Naproxen for pain Return parameters discussed with patient. Scribe Attestation: Documented by Maritza Hendrickson, acting as a scribe for Isabel Jin MD. Provider Scribe Attestation: All medical record entries made by the Scribe were at my direction and personally dictated by me. I have reviewed the chart and agree that the record accurately reflects my personal performance of the history, physical exam, medical decision making, and the department course for this patient. I have also personally directed, reviewed, and agree with the discharge instructions and disposition. Disposition - Clinical Impression Clinical Impression: Abnormal vaginal bleeding - Disposition Referrals: [facility] [Outside] Disposition: Routine/Home Disposition Time: 18:50 Condition: STABLE Prescriptions: Naproxen 500 mg PO BID #60 tab Instructions: Dysfunctional Uterine Bleeding (ED) Forms: [facility] (Hebrew) Print Language: IRANIAN
[2019-04-06 15:58] LABS: BASO % 0.3 % (0.0-2.0); EOS # 0.1 K/uL (0.0-0.7); EOS % 1.1 % (0.0-4.0); LYMPH % 39.4 % (20.0-40.0); MEAN CELL VOLUME 87.4 fl (81.0-99.0); MEAN CORPUSCULAR HEMOGLOBIN 29.2 pg (27.0-31.0); MEAN CORPUSCULAR HGB CONC 33.4 g/dL (33.0-37.0); MEAN PLATELET VOLUME 9.4 fl (7.2-11.7); MONO # 0.7 K/uL (0.0-0.8); MONO % 9.2 % (0.0-10.0); NEUT # 3.8 K/uL (1.8-7.0); NRBC % 0.1 % (0.0-0.0); RBC 4.45 Mil/uL (3.80-5.20); RED CELL DISTRIBUTION WIDTH 17.7 % (11.5-14.5); WHITE BLOOD COUNT 7.6 K/uL (4.8-10.8)
[2019-04-06 16:10] LABS: BLOOD UREA NITROGEN 13 mg/dl (7-17); CALCIUM 9.9 mg/dL (8.4-10.2); GFR NON-AFRICAN AMERICAN > 60
--- NOTE | 2019-04-06 18:14 | US ---
Date of service: 04/06/2019 HISTORY: vaginal bleeding 17 yrs after menopause COMPARISON: Transvaginal pelvic ultrasound 04/21/2018. TECHNIQUE: Transabdominal and transvaginal pelvic ultrasound was performed with longitudinal and transverse images submitted for interpretation. FINDINGS: UTERUS: Measures 7.2 x 4.4 x 3.0 cm. Uterus is normal in size, anteverted with mildly heterogeneous myometrium but without focal mass identified. Interpretation is primarily made by transvaginal ultrasonography as detailed soft tissue is poor from the transabdominal exam due to body habitus and lack of adequate urinary bladder distension. Previously identified small posterior fundal, nearly isoechoic fibroid is not clearly identified currently. ENDOMETRIUM: Measures 3.0 mm in diameter. Unremarkable. CERVIX: No cervical abnormality identified. RIGHT OVARY: Not identified. No suspicious adnexal mass or fluid collection appreciable. LEFT OVARY: Not identified. No suspicious adnexal mass or fluid collection appreciable. FREE FLUID: No significant free fluid noted. OTHER FINDINGS: None. IMPRESSION: Normal size uterus identified without focal cyst or solid parenchymal mass but with mildly heterogeneous parenchyma noted instead. Prior small posterior fundal, nearly isoechoic fibroid is not clearly identified currently. No suspicious endometrial or cervical findings. No suspicious adnexal finding either, bilaterally. Neither ovary is identified, however, could be a function of prior bilateral oophorectomy or atrophy versus obscuring by overlying bowel gas.
[2019-04-06 19:03] VITALS: BP 110/80; PULSE 90; RESP 18
[2019-04-09 12:13] VITALS: O2SAT 97
== END 2019-04-06 19:00 | disposition home or self-care (01) ==
LOC: H.ER 13:57
DX: N93.8 Other specified abnormal uterine and vaginal bleeding (principal); E78.00 Pure hypercholesterolemia, unspecified; F20.9 Schizophrenia, unspecified; F31.9 Bipolar disorder, unspecified; I12.9 Hypertensive chronic kidney disease with stage 1 through stage 4 chronic kidney disease, or unspecified chronic kidney disease; Z79.899 Other long term (current) drug therapy